=== PATIENT | female | born 1960 | race Caucasian/White ===

== ENCOUNTER 2017-11-25 14:30 | Inpatient (IN) | payer MEDICARE, MEDICAID, SELFPAY ==
[2017-11-26] MEDS ORDERED: ACETAMINOPHEN 500 MG TAB PO (01:30)
[2017-11-26] MEDS: methylPREDNISolone INJ 125 MG/2 ML VIAL (J2930) IV ×4 (01:50→18:17)
[2017-11-26] MEDS: AZITHROMYCIN INJ 500 MG, VIAL MATE ADAPTER 1 EACH in D5W 250 ML IV ×2 (01:50→23:44)
[2017-11-26] MEDS: cefTRIAXone SOD 1 GM in D5W MINI-BAG PLUS 50 ML IV (01:50)
[2017-11-26] MEDS: NICOTINE 21MG/24HR 1 EA TRANSDERMAL TD ×2 (01:51→21:10)
[2017-11-26] MEDS: IPRATROPIUM 0.5MG/ALBUTEROL 2.5MG INH SOL UD 3ML (DUONEB)(J7620) INH ×6 (03:26→23:41)
[2017-11-26 04:44] LABS: BASO % 0.3 % (0.0-1.0); HEMOGLOBIN 12.6 g/dl (12.0-15.5); IMMATURE GRANULOCYTE % 2.3 % (0-3.0); LYMPH % 10.7 % (24.0-44.0); MEAN CORPUSCULAR HEMOGLOBIN 29.9 pg (27.0-33.0); MEAN CORPUSCULAR HGB CONC 30.7 g/dl (32.0-36.5); MEAN CORPUSCULAR VOLUME 97.4 fl (80.0-96.0); MONO # 0.6 10^3/uL (0.0-0.8); MONO % 6.6 % (0.0-5.0); NEUTROPHILS # 7.1 10^3/uL (1.8-7.7); NEUTROPHILS % 80.1 % (36.0-66.0); PLATELET COUNT, AUTOMATED 229 10^3/uL (150-450); RED BLOOD COUNT 4.21 10^6/uL (4.00-5.40); RED CELL DISTRIBUTION WIDTH 13.6 % (11.5-14.5); WHITE BLOOD COUNT 8.9 10^3/uL (4.0-10.0)
[2017-11-26 04:51] LABS: AMMONIA 33 uMOL/L (<32)
[2017-11-26 04:54] LABS: ALBUMIN 2.6 GM/DL (3.2-5.2); ALBUMIN/GLOBULIN RATIO 0.72 (1.00-1.93); ALKALINE PHOSPHATASE 63 U/L (45-117); ALT/SGPT 36 U/L (12-78); ANION GAP 3 MEQ/L (8-16); AST/SGOT 9 U/L (7-37); BILIRUBIN,DIRECT 0.1 MG/DL (0.0-0.2); BILIRUBIN,TOTAL 0.2 MG/DL (0.2-1.0); BLOOD UREA NITROGEN 13 MG/DL (7-18); CALCIUM LEVEL 8.7 MG/DL (8.5-10.1); CARBON DIOXIDE LEVEL 32 MEQ/L (21-32); CHLORIDE LEVEL 106 MEQ/L (98-107); CHOLESTEROL LEVEL 136 MG/DL (< 200); CPK CREATINE PHOSPHOKINASE 19 U/L (26-192); CREATININE FOR GFR 0.76 MG/DL (0.55-1.30); GLOMERULAR FILTRATION RATE > 60.0 (>51); GLUCOSE, FASTING 173 MG/DL (70-100); LDH LACTATE DEHYDROGENASE 167 U/L (84-246); PHOSPHORUS LEVEL 2.4 MG/DL (2.5-4.9); SODIUM LEVEL 141 MEQ/L (136-145); TOTAL PROTEIN 6.2 GM/DL (6.4-8.2); TRIGLYCERIDES LEVEL 96 MG/DL (<150)
[2017-11-26 05:05] LABS: INR 1.13; PROTHROMBIN TIME 14.7 SECONDS (12.4-14.5)
[2017-11-26] MEDS: HEPARIN SOD (PORCINE) 5000 UNITS/ML VIAL SQ ×3 (05:43→21:11)
[2017-11-26] MEDS: GABAPENTIN 100 MG CAP PO ×3 (05:43→21:11)
[2017-11-26] MEDS: BUDESONIDE 0.5 MG/2 ML INHALATION SUSPENSION INH ×2 (07:49→20:02)
[2017-11-26] MEDS: FORMOTEROL FUMARATE 20 MCG/2 ML INHALATION SOLUTION (PERFOROMIST) INH ×2 (07:49→20:02)
[2017-11-26] MEDS: guaiFENesin ER 600 MG TAB PO ×2 (08:21→21:11)
[2017-11-26] MEDS: CETIRIZINE (ZyrTEC) 10 MG TAB PO (08:21)
[2017-11-26] MEDS: PARoxetine 20 MG TAB PO (08:22)
[2017-11-26] MEDS: PANTOPRAZOLE 40MG TAB (PROTONIX) PO (08:22)
[2017-11-26] MEDS: amLODIPine 10 MG TAB PO (08:24)
[2017-11-26] MEDS: BENAZEPRIL 5 MG TAB PO (10:40)
[2017-11-26] MEDS: hydroCHLOROthiazide 12.5 MG CAPSULE PO (10:40)
[2017-11-26] MEDS: ATORVASTATIN 20 MG TAB PO (21:11)
[2017-11-27] MEDS: methylPREDNISolone INJ 125 MG/2 ML VIAL (J2930) IV ×2 (01:08→06:01)
[2017-11-27] MEDS: cefTRIAXone SOD 1 GM in D5W MINI-BAG PLUS 50 ML IV (01:09)
[2017-11-27] MEDS: IPRATROPIUM 0.5MG/ALBUTEROL 2.5MG INH SOL UD 3ML (DUONEB)(J7620) INH ×5 (03:40→19:58)
[2017-11-27 05:13] LABS: BASO % 0.3 % (0.0-1.0); HEMATOCRIT 39.7 % (36.0-47.0); HEMOGLOBIN 12.6 g/dl (12.0-15.5); IMMATURE GRANULOCYTE % 3.6 % (0-3.0); LYMPH # 0.7 10^3/uL (1.5-4.5); LYMPH % 8.3 % (24.0-44.0); MEAN CORPUSCULAR HEMOGLOBIN 29.8 pg (27.0-33.0); MEAN CORPUSCULAR HGB CONC 31.7 g/dl (32.0-36.5); MEAN CORPUSCULAR VOLUME 93.9 fl (80.0-96.0); MONO # 0.6 10^3/uL (0.0-0.8); MONO % 6.7 % (0.0-5.0); NEUTROPHILS % 81.1 % (36.0-66.0); PLATELET COUNT, AUTOMATED 248 10^3/uL (150-450); RED BLOOD COUNT 4.23 10^6/uL (4.00-5.40); RED CELL DISTRIBUTION WIDTH 13.2 % (11.5-14.5); WHITE BLOOD COUNT 8.7 10^3/uL (4.0-10.0)
[2017-11-27 05:33] LABS: ALBUMIN 2.7 GM/DL (3.2-5.2); ALBUMIN/GLOBULIN RATIO 0.82 (1.00-1.93); ALKALINE PHOSPHATASE 55 U/L (45-117); ALT/SGPT 27 U/L (12-78); ANION GAP 4 MEQ/L (8-16); AST/SGOT 4 U/L (7-37); BILIRUBIN,TOTAL 0.2 MG/DL (0.2-1.0); BLOOD UREA NITROGEN 10 MG/DL (7-18); CALCIUM LEVEL 8.6 MG/DL (8.5-10.1); CARBON DIOXIDE LEVEL 37 MEQ/L (21-32); CHLORIDE LEVEL 99 MEQ/L (98-107); CREATININE FOR GFR 0.87 MG/DL (0.55-1.30); GLOMERULAR FILTRATION RATE > 60.0 (>51); GLUCOSE, FASTING 186 MG/DL (70-100); POTASSIUM SERUM 2.9 MEQ/L (3.5-5.1); SODIUM LEVEL 140 MEQ/L (136-145)
[2017-11-27 05:48] LABS: ABG BASE EXCESS 12.1 (-2.0-2.0); ABG HCO3 38.4 MEQ/L (22.0-26.0); ABG O2 SATURATION 92.7 % (95.0-99.0); ABG PARTIAL PRESSURE CO2 57.1 mmHg (35.0-45.0); ABG PARTIAL PRESSURE O2 64.4 mmHg (75.0-100.0); ABG STANDARD HCO3 35.7 MEQ/L (22.0-26.0); ABG TOTAL CO2 40.2 MEQ/L (22.0-29.0); ABG pH (ARTERIAL) 7.446 UNITS (7.350-7.450)
[2017-11-27] MEDS: HEPARIN SOD (PORCINE) 5000 UNITS/ML VIAL SQ ×3 (06:01→21:06)
[2017-11-27] MEDS: GABAPENTIN 100 MG CAP PO ×3 (06:01→21:03)
[2017-11-27] MEDS: KCL 10MEQ/100ML SWI (KRUN) 10 MEQ in APPROPRIATE DILUENT 1 EA IV ×3 (06:35→10:35)
[2017-11-27] MEDS: NORCO, ANEXSIA 5/325MG TABLET (HYDROcodone/ACETAMINOPHEN) PO ×2 (06:35→13:33)
[2017-11-27] MEDS: BUDESONIDE 0.5 MG/2 ML INHALATION SUSPENSION INH (07:32)
[2017-11-27] MEDS: FORMOTEROL FUMARATE 20 MCG/2 ML INHALATION SOLUTION (PERFOROMIST) INH (07:32)
[2017-11-27] MEDS: PARoxetine 20 MG TAB PO (08:41)
[2017-11-27] MEDS: BENAZEPRIL 5 MG TAB PO (08:42)
[2017-11-27] MEDS: guaiFENesin ER 600 MG TAB PO ×2 (08:43→21:03)
[2017-11-27] MEDS: amLODIPine 10 MG TAB PO (08:44)
[2017-11-27] MEDS: hydroCHLOROthiazide 12.5 MG CAPSULE PO (08:44)
[2017-11-27] MEDS: PANTOPRAZOLE 40MG TAB (PROTONIX) PO (08:45)
[2017-11-27] MEDS: CETIRIZINE (ZyrTEC) 10 MG TAB PO (08:46)
[2017-11-27] MEDS ORDERED: ALBUTEROL SULFATE 2.5 MG/0.5 ML INH NEB SOLN NEB (10:45)
[2017-11-27] MEDS: AZITHROMYCIN 250 MG TAB PO (11:41)
[2017-11-27] MEDS: SYMBICORT 160/4.5MCG INHALER 6GM INH ×2 (13:31→19:57)
[2017-11-27] MEDS: predniSONE 20 MG TAB PO (18:13)
[2017-11-27] MEDS: ATORVASTATIN 20 MG TAB PO (21:03)
[2017-11-27] MEDS: NICOTINE 21MG/24HR 1 EA TRANSDERMAL TD (21:06)
[2017-11-28] MEDS: cefTRIAXone SOD 1 GM in D5W MINI-BAG PLUS 50 ML IV (00:56)
[2017-11-28] MEDS: GABAPENTIN 100 MG CAP PO ×3 (05:31→22:01)
[2017-11-28] MEDS: HEPARIN SOD (PORCINE) 5000 UNITS/ML VIAL SQ ×3 (05:31→22:01)
[2017-11-28] MEDS: predniSONE 20 MG TAB PO (05:31)
[2017-11-28] MEDS: IPRATROPIUM 0.5MG/ALBUTEROL 2.5MG INH SOL UD 3ML (DUONEB)(J7620) INH ×4 (07:13→19:30)
[2017-11-28] MEDS: TIOTROPIUM INHALER/CAPSULE (SPIRIVA) INH (07:13)
[2017-11-28] MEDS: SYMBICORT 160/4.5MCG INHALER 6GM INH ×2 (07:14→19:29)
[2017-11-28] MEDS: PANTOPRAZOLE 40MG TAB (PROTONIX) PO (08:55)
[2017-11-28] MEDS: hydroCHLOROthiazide 12.5 MG CAPSULE PO (08:56)
[2017-11-28] MEDS: guaiFENesin ER 600 MG TAB PO ×2 (08:56→22:00)
[2017-11-28] MEDS: CETIRIZINE (ZyrTEC) 10 MG TAB PO (08:56)
[2017-11-28] MEDS: PARoxetine 20 MG TAB PO (08:57)
[2017-11-28] MEDS: amLODIPine 10 MG TAB PO (08:57)
[2017-11-28] MEDS: BENAZEPRIL 5 MG TAB PO (08:57)
[2017-11-28] MEDS: AZITHROMYCIN 250 MG TAB PO (08:57)
[2017-11-28 09:05] LABS: MAGNESIUM LEVEL 2.1 MG/DL (1.8-2.4)
[2017-11-28 09:59] LABS: BASO % 0.2 % (0.0-1.0); HEMATOCRIT 41.4 % (36.0-47.0); HEMOGLOBIN 13.4 g/dl (12.0-15.5); IMMATURE GRANULOCYTE % 3.5 % (0-3.0); LYMPH # 0.8 10^3/uL (1.5-4.5); LYMPH % 7.9 % (24.0-44.0); MEAN CORPUSCULAR HEMOGLOBIN 30.2 pg (27.0-33.0); MEAN CORPUSCULAR HGB CONC 32.4 g/dl (32.0-36.5); MEAN CORPUSCULAR VOLUME 93.5 fl (80.0-96.0); MONO # 0.9 10^3/uL (0.0-0.8); MONO % 8.9 % (0.0-5.0); NEUTROPHILS # 8.3 10^3/uL (1.8-7.7); NEUTROPHILS % 79.5 % (36.0-66.0); PLATELET COUNT, AUTOMATED 308 10^3/uL (150-450); RED BLOOD COUNT 4.43 10^6/uL (4.00-5.40); RED CELL DISTRIBUTION WIDTH 13.2 % (11.5-14.5); WHITE BLOOD COUNT 10.4 10^3/uL (4.0-10.0)
[2017-11-28 10:15] LABS: ANION GAP 7 MEQ/L (8-16); BLOOD UREA NITROGEN 10 MG/DL (7-18); CALCIUM LEVEL 8.6 MG/DL (8.5-10.1); CARBON DIOXIDE LEVEL 41 MEQ/L (21-32); CHLORIDE LEVEL 95 MEQ/L (98-107); CREATININE FOR GFR 0.85 MG/DL (0.55-1.30); GLOMERULAR FILTRATION RATE > 60.0 (>51); GLUCOSE, FASTING 158 MG/DL (70-100); POTASSIUM SERUM 3.2 MEQ/L (3.5-5.1); SODIUM LEVEL 143 MEQ/L (136-145)
[2017-11-28] MEDS: POTASSIUM CHLORIDE 10 MEQ SR TABLET PO (11:29)
[2017-11-28] MEDS: NORCO, ANEXSIA 5/325MG TABLET (HYDROcodone/ACETAMINOPHEN) PO (15:40)
[2017-11-28] MEDS: ATORVASTATIN 20 MG TAB PO (22:01)
[2017-11-28] MEDS: NICOTINE 21MG/24HR 1 EA TRANSDERMAL TD (22:01)
[2017-11-29] MEDS: cefTRIAXone SOD 1 GM in D5W MINI-BAG PLUS 50 ML IV (01:26)
[2017-11-29] MEDS: GABAPENTIN 100 MG CAP PO ×3 (05:37→21:05)
[2017-11-29] MEDS: HEPARIN SOD (PORCINE) 5000 UNITS/ML VIAL SQ ×3 (05:37→21:07)
[2017-11-29 06:24] LABS: HEMATOCRIT 39.9 % (36.0-47.0); HEMOGLOBIN 12.7 g/dl (12.0-15.5); MEAN CORPUSCULAR HEMOGLOBIN 30.1 pg (27.0-33.0); MEAN CORPUSCULAR HGB CONC 31.8 g/dl (32.0-36.5); MEAN CORPUSCULAR VOLUME 94.5 fl (80.0-96.0); PLATELET COUNT, AUTOMATED 253 10^3/uL (150-450); RED BLOOD COUNT 4.22 10^6/uL (4.00-5.40); RED CELL DISTRIBUTION WIDTH 13.4 % (11.5-14.5); WHITE BLOOD COUNT 8.9 10^3/uL (4.0-10.0)
[2017-11-29 07:12] LABS: BLOOD UREA NITROGEN 10 MG/DL (7-18); CREATININE FOR GFR 0.81 MG/DL (0.55-1.30); GLOMERULAR FILTRATION RATE > 60.0 (>51); GLUCOSE, FASTING 108 MG/DL (70-100); SODIUM LEVEL 144 MEQ/L (136-145)
[2017-11-29 07:13] LABS: CHLORIDE LEVEL 96 MEQ/L (98-107)
[2017-11-29 07:14] LABS: ANION GAP 4 MEQ/L (8-16); CALCIUM LEVEL 8.3 MG/DL (8.5-10.1); CARBON DIOXIDE LEVEL 44 MEQ/L (21-32)
[2017-11-29] MEDS: IPRATROPIUM 0.5MG/ALBUTEROL 2.5MG INH SOL UD 3ML (DUONEB)(J7620) INH ×3 (07:14→15:23)
[2017-11-29] MEDS: SYMBICORT 160/4.5MCG INHALER 6GM INH ×2 (07:14→19:46)
[2017-11-29] MEDS: TIOTROPIUM INHALER/CAPSULE (SPIRIVA) INH (07:14)
[2017-11-29 07:16] LABS: POTASSIUM SERUM 2.7 MEQ/L (3.5-5.1)
[2017-11-29] MEDS: guaiFENesin ER 600 MG TAB PO ×2 (08:09→21:05)
[2017-11-29] MEDS: CETIRIZINE (ZyrTEC) 10 MG TAB PO (08:09)
[2017-11-29] MEDS: PANTOPRAZOLE 40MG TAB (PROTONIX) PO (08:09)
[2017-11-29] MEDS: hydroCHLOROthiazide 12.5 MG CAPSULE PO (08:10)
[2017-11-29] MEDS: BENAZEPRIL 5 MG TAB PO (08:11)
[2017-11-29] MEDS: POTASSIUM CHLORIDE 10 MEQ SR TABLET PO (08:12)
[2017-11-29] MEDS: amLODIPine 10 MG TAB PO (08:12)
[2017-11-29] MEDS: predniSONE 20 MG TAB PO (08:12)
[2017-11-29] MEDS: PARoxetine 20 MG TAB PO (08:12)
[2017-11-29] MEDS: AZITHROMYCIN 250 MG TAB PO (08:12)
[2017-11-29] MEDS: ATORVASTATIN 20 MG TAB PO (21:05)
[2017-11-29] MEDS: NICOTINE 21MG/24HR 1 EA TRANSDERMAL TD (21:06)
[2017-11-29] MEDS: NORCO, ANEXSIA 5/325MG TABLET (HYDROcodone/ACETAMINOPHEN) PO (21:09)
[2017-11-30] MEDS: cefTRIAXone SOD 1 GM in D5W MINI-BAG PLUS 50 ML IV (00:42)
[2017-11-30] MEDS: GABAPENTIN 100 MG CAP PO (05:10)
[2017-11-30] MEDS: HEPARIN SOD (PORCINE) 5000 UNITS/ML VIAL SQ (05:11)
[2017-11-30 06:12] LABS: HEMATOCRIT 40.4 % (36.0-47.0); HEMOGLOBIN 12.9 g/dl (12.0-15.5); MEAN CORPUSCULAR HEMOGLOBIN 30.3 pg (27.0-33.0); MEAN CORPUSCULAR HGB CONC 31.9 g/dl (32.0-36.5); MEAN CORPUSCULAR VOLUME 94.8 fl (80.0-96.0); PLATELET COUNT, AUTOMATED 253 10^3/uL (150-450); RED BLOOD COUNT 4.26 10^6/uL (4.00-5.40); RED CELL DISTRIBUTION WIDTH 13.6 % (11.5-14.5); WHITE BLOOD COUNT 9.6 10^3/uL (4.0-10.0)
[2017-11-30 06:30] LABS: ANION GAP 3 MEQ/L (8-16); BLOOD UREA NITROGEN 12 MG/DL (7-18); CALCIUM LEVEL 8.8 MG/DL (8.5-10.1); CARBON DIOXIDE LEVEL 44 MEQ/L (21-32); CHLORIDE LEVEL 95 MEQ/L (98-107); CREATININE FOR GFR 0.83 MG/DL (0.55-1.30); GLOMERULAR FILTRATION RATE > 60.0 (>51); GLUCOSE, FASTING 112 MG/DL (70-100); POTASSIUM SERUM 3.2 MEQ/L (3.5-5.1); SODIUM LEVEL 142 MEQ/L (136-145)
[2017-11-30] MEDS: IPRATROPIUM 0.5MG/ALBUTEROL 2.5MG INH SOL UD 3ML (DUONEB)(J7620) INH (08:00)
[2017-11-30] MEDS: POTASSIUM CHLORIDE 10 MEQ SR TABLET PO (08:25)
[2017-11-30] MEDS: predniSONE 20 MG TAB PO (08:26)
[2017-11-30] MEDS: BENAZEPRIL 5 MG TAB PO (08:26)
[2017-11-30] MEDS: guaiFENesin ER 600 MG TAB PO (08:26)
[2017-11-30] MEDS: AZITHROMYCIN 250 MG TAB PO (08:26)
[2017-11-30] MEDS: PARoxetine 20 MG TAB PO (08:26)
[2017-11-30] MEDS: PANTOPRAZOLE 40MG TAB (PROTONIX) PO (08:27)
[2017-11-30] MEDS: amLODIPine 10 MG TAB PO (08:27)
[2017-11-30] MEDS: hydroCHLOROthiazide 12.5 MG CAPSULE PO (08:27)
[2017-11-30] MEDS: CETIRIZINE (ZyrTEC) 10 MG TAB PO (08:27)
[2017-11-30] MEDS: SYMBICORT 160/4.5MCG INHALER 6GM INH (08:56)
[2017-11-30] MEDS: TIOTROPIUM INHALER/CAPSULE (SPIRIVA) INH (08:56)
== END 2017-11-30 12:45 | disposition home or self-care (01) | DRG 189 ==
LOC: M MSPAV 11-27 12:05 → M ICU 14:30
PROC: 5A09357 Assistance with Respiratory Ventilation, Less than 24 Consecutive Hours, Continuous Positive Airway Pressure (ICD-10-PCS; principal; 2017-11-25)
DX: J96.21 Acute and chronic respiratory failure with hypoxia (principal); J44.0 Chronic obstructive pulmonary disease with (acute) lower respiratory infection; E87.2 Acidosis; J44.1 Chronic obstructive pulmonary disease with (acute) exacerbation; J96.02 Acute respiratory failure with hypercapnia; F17.210 Nicotine dependence, cigarettes, uncomplicated; I10 Essential (primary) hypertension; E66.9 Obesity, unspecified; F32.9 Major depressive disorder, single episode, unspecified; E78.00 Pure hypercholesterolemia, unspecified; J30.2 Other seasonal allergic rhinitis; R91.8 Other nonspecific abnormal finding of lung field; E87.6 Hypokalemia; E55.9 Vitamin D deficiency, unspecified; M19.90 Unspecified osteoarthritis, unspecified site; M25.561 Pain in right knee; M10.9 Gout, unspecified; Z79.891 Long term (current) use of opiate analgesic; Z79.899 Other long term (current) drug therapy

== ENCOUNTER 2022-04-04 17:15 | Inpatient (IN) | payer MEDICARE, MEDICAID ==
[~2022-04-04] VITALS: Ht 152.4 cm; Wt 70.8 kg
[~2022-04-04 17:15] MED LIST: ALLO100T PO; AMLO1TAB24 PO; AMLO1TAB25 PO; AZIT500I IV; BENA1TAB23 PO; CEFT1INJ5 INJ; CETI10TA PO; COMBAER6 INH; DILT30TA PO; GABA-1171 PO; HYDR12CA PO; IPRA0.00 INH; METH125VL IM; METO100T5 PO; NICO21DI34 TD; NORC1TAB8 PO; OMEP40CA4 PO; PARO20TA3 PO; POTA-136 PO; PRED10TA2 PO; QUET1TAB17 PO; RISP-8 PO; SIMV20TA22 PO; SYMB16INH INH; VITA100066 PO; VITA50005 PO
[2022-04-05] VITALS (21 sets, daily range): BP systolic 116–198; BP diastolic 56–92; O2SAT 90
[2022-04-05] MEDS ORDERED: MOM 30ML SUSPENSION UDC PO PRN
[2022-04-05 00:32] LABS: ABG BASE EXCESS 2.1 (-2.0-2.0); ABG HCO3 30.5 MEQ/L (22.0-26.0); ABG O2 SATURATION 94.3 % (95.0-99.0); ABG PARTIAL PRESSURE O2 75.8 mmHg (75.0-100.0); ABG STANDARD HCO3 26.3 MEQ/L (22.0-26.0); ABG TOTAL CO2 32.5 MEQ/L (22.0-29.0); ABG pH (ARTERIAL) 7.289 UNITS (7.350-7.450)
[2022-04-05 00:34] LABS: ABG PARTIAL PRESSURE CO2 65.1 mmHg (35.0-45.0)
[2022-04-05 00:59] LABS: HEMATOCRIT 42.2 % (36.0-47.0); HEMOGLOBIN 12.5 g/dl (12.0-15.5); MEAN CORPUSCULAR HEMOGLOBIN 29.1 pg (27.0-33.0); MEAN CORPUSCULAR HGB CONC 29.6 g/dl (32.0-36.5); MEAN CORPUSCULAR VOLUME 98.4 fl (80.0-96.0); PLATELET COUNT, AUTOMATED 293 10^3/uL (150-450); RED BLOOD COUNT 4.29 10^6/uL (4.00-5.40); WHITE BLOOD COUNT 13.8 10^3/uL (4.0-10.0)
[2022-04-05 01:40] LABS: ALBUMIN 3.1 GM/DL (3.2-5.2); ALT/SGPT 16 U/L (12-78); BILIRUBIN,TOTAL 0.2 MG/DL (0.2-1.0); BLOOD UREA NITROGEN 11 MG/DL (7-18); CARBON DIOXIDE LEVEL 33 MEQ/L (21-32); CHLORIDE LEVEL 101 MEQ/L (98-107); CREATININE FOR GFR 0.81 MG/DL (0.55-1.30); GLOMERULAR FILTRATION RATE > 60.0 (>51); GLUCOSE, FASTING 139 MG/DL (70-100); POTASSIUM SERUM 4.5 MEQ/L (3.5-5.1); SODIUM LEVEL 137 MEQ/L (136-145); TOTAL PROTEIN 6.5 GM/DL (6.4-8.2)
[2022-04-05] MEDS ORDERED: methylPREDNISolone 125MG 2ML VIAL IV SCH (04:00)
[2022-04-05] MEDS: cefTRIAXone SOD 1 GM in D5W MINI-BAG PLUS 50 ML IV SCH (04:27)
[2022-04-05] MEDS: DOXYCYCLINE HYCLATE 100MG TABLET PO SCH ×2 (05:48→20:15)
[2022-04-05] MEDS ORDERED: HEPARIN SOD (PORCINE) 5000UNITS/ML 1ML VIAL/SYRINGE SC SCH (06:00)
[2022-04-05] MEDS: SYMBICORT 160/4.5MCG INHALER 6GM INH SCH ×3 (08:00→20:04)
[2022-04-05] MEDS: IPRATROPIUM 0.5MG/ALBUTEROL 2.5MG INH SOL UD 3ML (DUONEB) NEB SCH ×3 (08:06→20:04)
[2022-04-05 08:19] LABS: ABG BASE EXCESS 5.2 (-2.0-2.0); ABG HCO3 34.3 MEQ/L (22.0-26.0); ABG O2 SATURATION 95.7 % (95.0-99.0); ABG PARTIAL PRESSURE O2 83.8 mmHg (75.0-100.0); ABG STANDARD HCO3 29.1 MEQ/L (22.0-26.0); ABG TOTAL CO2 36.6 MEQ/L (22.0-29.0); ABG pH (ARTERIAL) 7.285 UNITS (7.350-7.450)
[2022-04-05 08:23] LABS: ABG PARTIAL PRESSURE CO2 73.8 mmHg (35.0-45.0)
[2022-04-05] MEDS ORDERED: amLODIPine 5 MG TAB PO SCH (09:00)
[2022-04-05] MEDS ORDERED: hydrALAZINE 20MG/ML 1ML VIAL (J0360 PER 20MG) IV ONE (09:10)
[2022-04-05] MEDS: PANTOPRAZOLE 40MG VIAL IV SCH (09:15)
[2022-04-05] MEDS: DOCUSATE SODIUM 100MG CAPSULE PO SCH ×2 (09:15→20:15)
[2022-04-05] MEDS: ENOXAPARIN 40MG/0.4ML SYRINGE (J1650 PER 10MG) SC SCH (09:15)
[2022-04-05] MEDS: methylPREDNISolone 125MG 2ML VIAL IV SCH ×2 (09:16→17:35)
[2022-04-05] MEDS: NICOTINE 21MG/24HR 1 EA TRANSDERMAL TD SCH (09:16)
[2022-04-05] MEDS ORDERED: FOLI1TAB11 PO (09:25)
[2022-04-05] MEDS ORDERED: AMLO1TAB24 PO (09:25)
[2022-04-05] MEDS ORDERED: PRED10TA2 PO (09:25)
[2022-04-05] MEDS ORDERED: TREL1AER INH (09:25)
[2022-04-05] MEDS ORDERED: METH2.5T48 PO (09:28)
[2022-04-05] MEDS ORDERED: CHOL25TA2 PO (09:33)
[2022-04-05] MEDS ORDERED: MELA5TAB10 PO (09:34)
[2022-04-05] MEDS ORDERED: AZIT-12 PO (10:09)
[2022-04-05] MEDS ORDERED: CEFT1INJ5 IV (10:09)
[2022-04-05] MEDS ORDERED: METH125VL IV (10:09)
[2022-04-05] MEDS ORDERED: HOME MED LIST COMPLETE! XX SCH (10:10)
[2022-04-05 14:58] LABS: ABG BASE EXCESS 4.3 (-2.0-2.0); ABG HCO3 32.4 MEQ/L (22.0-26.0); ABG O2 SATURATION 94.2 % (95.0-99.0); ABG PARTIAL PRESSURE CO2 65.3 mmHg (35.0-45.0); ABG PARTIAL PRESSURE O2 74.1 mmHg (75.0-100.0); ABG STANDARD HCO3 28.3 MEQ/L (22.0-26.0); ABG TOTAL CO2 34.4 MEQ/L (22.0-29.0); ABG pH (ARTERIAL) 7.314 UNITS (7.350-7.450)
[2022-04-05] MEDS: ENALAPRIL MALEATE 5 MG TAB PO SCH (17:35)
[2022-04-05] MEDS ORDERED: RAMELTEON 8 MG TAB (ROZEREM) PO ONE (21:00)
[2022-04-06] VITALS (11 sets, daily range): BP systolic 124–152; BP diastolic 60–78
[2022-04-06] MEDS: methylPREDNISolone 125MG 2ML VIAL IV SCH ×3 (01:03→16:35)
[2022-04-06] MEDS: IPRATROPIUM 0.5MG/ALBUTEROL 2.5MG INH SOL UD 3ML (DUONEB) NEB SCH ×4 (02:55→20:22)
[2022-04-06] MEDS: cefTRIAXone SOD 1 GM in D5W MINI-BAG PLUS 50 ML IV SCH (03:11)
[2022-04-06 04:18] LABS: HEMATOCRIT 42.8 % (36.0-47.0); HEMOGLOBIN 12.4 g/dl (12.0-15.5); MEAN CORPUSCULAR HEMOGLOBIN 28.9 pg (27.0-33.0); MEAN CORPUSCULAR VOLUME 99.8 fl (80.0-96.0); PLATELET COUNT, AUTOMATED 264 10^3/uL (150-450); RED BLOOD COUNT 4.29 10^6/uL (4.00-5.40); WHITE BLOOD COUNT 14.2 10^3/uL (4.0-10.0)
[2022-04-06 04:58] LABS: ALBUMIN 2.7 GM/DL (3.2-5.2); ALT/SGPT 17 U/L (12-78); BILIRUBIN,TOTAL 0.1 MG/DL (0.2-1.0); BLOOD UREA NITROGEN 16 MG/DL (7-18); CARBON DIOXIDE LEVEL 33 MEQ/L (21-32); CHLORIDE LEVEL 101 MEQ/L (98-107); CREATININE FOR GFR 0.71 MG/DL (0.55-1.30); GLOMERULAR FILTRATION RATE > 60.0 (>51); GLUCOSE, FASTING 180 MG/DL (70-100); POTASSIUM SERUM 4.5 MEQ/L (3.5-5.1); SODIUM LEVEL 137 MEQ/L (136-145); TOTAL PROTEIN 6.3 GM/DL (6.4-8.2)
[2022-04-06] MEDS: SYMBICORT 160/4.5MCG INHALER 6GM INH SCH ×2 (07:52→20:22)
[2022-04-06] MEDS: DOXYCYCLINE HYCLATE 100MG TABLET PO SCH ×2 (09:21→20:07)
[2022-04-06] MEDS: DOCUSATE SODIUM 100MG CAPSULE PO SCH ×2 (09:21→20:07)
[2022-04-06] MEDS: PANTOPRAZOLE 40MG VIAL IV SCH (09:22)
[2022-04-06] MEDS: ENALAPRIL MALEATE 5 MG TAB PO SCH (09:22)
[2022-04-06] MEDS: NICOTINE 21MG/24HR 1 EA TRANSDERMAL TD SCH (09:23)
[2022-04-06] MEDS: ENOXAPARIN 40MG/0.4ML SYRINGE (J1650 PER 10MG) SC SCH (09:23)
[2022-04-06 10:17] LABS: NT-PRO BNP 516 PG/ML (<125)
[2022-04-06 11:33] LABS: HEMOGLOBIN A1c 5.3 %
[2022-04-06] MEDS: FOLIC ACID 1MG TAB PO SCH (12:58)
[2022-04-06] MEDS: PARoxetine 20MG TABLET PO SCH (12:59)
[2022-04-06] MEDS: MULTIVITAMINS/MINERALS THERAP 1 TAB PO SCH (16:35)
[2022-04-06] MEDS: THIAMINE 100 MG TAB PO SCH (16:35)
[2022-04-06] MEDS: LORazepam 2 MG TAB PO PRN ×2 (16:35→18:52)
[2022-04-06] MEDS: QUEtiapine FUMARATE 25 MG TAB PO SCH (20:08)
[2022-04-07] VITALS (17 sets, daily range): BP systolic 89–165; BP diastolic 57–84; O2SAT 93
[2022-04-07] MEDS: methylPREDNISolone 125MG 2ML VIAL IV SCH ×3 (00:15→18:17)
[2022-04-07 00:23] LABS: ABG BASE EXCESS 5.6 (-2.0-2.0); ABG HCO3 34.9 MEQ/L (22.0-26.0); ABG O2 SATURATION 85.9 % (95.0-99.0); ABG PARTIAL PRESSURE O2 52.8 mmHg (75.0-100.0); ABG STANDARD HCO3 29.2 MEQ/L (22.0-26.0); ABG TOTAL CO2 37.2 MEQ/L (22.0-29.0); ABG pH (ARTERIAL) 7.278 UNITS (7.350-7.450)
[2022-04-07 00:25] LABS: ABG PARTIAL PRESSURE CO2 76.3 mmHg (35.0-45.0)
[2022-04-07] MEDS: IPRATROPIUM 0.5MG/ALBUTEROL 2.5MG INH SOL UD 3ML (DUONEB) NEB SCH ×4 (02:10→23:46)
[2022-04-07] MEDS: cefTRIAXone SOD 1 GM in D5W MINI-BAG PLUS 50 ML IV SCH (03:14)
[2022-04-07 05:58] LABS: ABG BASE EXCESS 3.4 (-2.0-2.0); ABG HCO3 32.3 MEQ/L (22.0-26.0); ABG O2 SATURATION 99.3 % (95.0-99.0); ABG PARTIAL PRESSURE O2 167.2 mmHg (75.0-100.0); ABG STANDARD HCO3 27.6 MEQ/L (22.0-26.0); ABG TOTAL CO2 34.4 MEQ/L (22.0-29.0); ABG pH (ARTERIAL) 7.282 UNITS (7.350-7.450)
[2022-04-07 05:59] LABS: ABG PARTIAL PRESSURE CO2 69.9 mmHg (35.0-45.0)
[2022-04-07] MEDS: SYMBICORT 160/4.5MCG INHALER 6GM INH SCH (06:59)
[2022-04-07] MEDS: LORazepam 2 MG TAB PO PRN (07:25)
[2022-04-07 07:37] LABS: HEMATOCRIT 42.8 % (36.0-47.0); HEMOGLOBIN 12.3 g/dl (12.0-15.5); MEAN CORPUSCULAR HGB CONC 28.7 g/dl (32.0-36.5); MEAN CORPUSCULAR VOLUME 100.9 fl (80.0-96.0); PLATELET COUNT, AUTOMATED 342 10^3/uL (150-450); RED BLOOD COUNT 4.24 10^6/uL (4.00-5.40); WHITE BLOOD COUNT 16.8 10^3/uL (4.0-10.0)
[2022-04-07] MEDS: BUDESONIDE 0.5 MG/2 ML INHALATION SUSPENSION INH SCH ×2 (08:00→19:23)
[2022-04-07 08:13] LABS: ALBUMIN 2.9 GM/DL (3.2-5.2); ALT/SGPT 15 U/L (12-78); BILIRUBIN,TOTAL 0.2 MG/DL (0.2-1.0); BLOOD UREA NITROGEN 28 MG/DL (7-18); CALCIUM LEVEL 10.5 MG/DL (8.5-10.1); CARBON DIOXIDE LEVEL 37 MEQ/L (21-32); CHLORIDE LEVEL 101 MEQ/L (98-107); GLOMERULAR FILTRATION RATE > 60.0 (>51); GLUCOSE, FASTING 144 MG/DL (70-100); POTASSIUM SERUM 4.8 MEQ/L (3.5-5.1); SODIUM LEVEL 138 MEQ/L (136-145); TOTAL PROTEIN 6.1 GM/DL (6.4-8.2)
[2022-04-07] MEDS ORDERED: FUROSEMIDE 20 MG TAB PO ONE (09:20)
[2022-04-07] MEDS: ENOXAPARIN 40MG/0.4ML SYRINGE (J1650 PER 10MG) SC SCH (09:41)
[2022-04-07] MEDS: FOLIC ACID 1MG TAB PO SCH (09:42)
[2022-04-07] MEDS: DOCUSATE SODIUM 100MG CAPSULE PO SCH ×2 (09:42→20:47)
[2022-04-07] MEDS: OMEPRAZOLE 20MG CAP PO SCH (09:42)
[2022-04-07] MEDS: PARoxetine 20MG TABLET PO SCH (09:42)
[2022-04-07] MEDS: MULTIVITAMINS/MINERALS THERAP 1 TAB PO SCH (09:43)
[2022-04-07] MEDS: ENALAPRIL MALEATE 5 MG TAB PO SCH (09:43)
[2022-04-07] MEDS: THIAMINE 100 MG TAB PO SCH ×2 (09:43→20:48)
[2022-04-07] MEDS: OXAZEPAM 10MG CAP PO SCH ×2 (09:43→20:47)
[2022-04-07] MEDS: DOXYCYCLINE HYCLATE 100MG TABLET PO SCH (09:44)
[2022-04-07] MEDS: NICOTINE 21MG/24HR 1 EA TRANSDERMAL TD SCH (09:44)
[2022-04-07] MEDS ORDERED: LORazepam 2 MG/ML VIAL IV STA (09:50)
[2022-04-07 14:24] LABS: ABG BASE EXCESS 2.2 (-2.0-2.0); ABG HCO3 30.5 MEQ/L (22.0-26.0); ABG O2 SATURATION 97.1 % (95.0-99.0); ABG STANDARD HCO3 26.4 MEQ/L (22.0-26.0); ABG TOTAL CO2 32.5 MEQ/L (22.0-29.0); ABG pH (ARTERIAL) 7.288 UNITS (7.350-7.450)
[2022-04-07 14:29] LABS: ABG PARTIAL PRESSURE CO2 65.1 mmHg (35.0-45.0)
[2022-04-07] MEDS: FORMOTEROL FUMARATE 20 MCG/2 ML INHALATION SOLUTION (PERFOROMIST) INH SCH (19:23)
[2022-04-07] MEDS ORDERED: LORazepam 2 MG/ML VIAL IV PRN (20:10)
[2022-04-07] MEDS ORDERED: DOXYCYCLINE HYCLATE 100 MG in D5W MINI-BAG PLUS 100 ML IV ONE (20:35)
[2022-04-07] MEDS: QUEtiapine FUMARATE 25 MG TAB PO SCH (20:48)
[2022-04-08] VITALS (13 sets, daily range): BP systolic 112–169; BP diastolic 56–88
[2022-04-08] MEDS: cefTRIAXone SOD 1 GM in D5W MINI-BAG PLUS 50 ML IV SCH (03:17)
[2022-04-08 04:31] LABS: HEMATOCRIT 44.7 % (36.0-47.0); HEMOGLOBIN 12.8 g/dl (12.0-15.5); MEAN CORPUSCULAR HEMOGLOBIN 29.4 pg (27.0-33.0); MEAN CORPUSCULAR HGB CONC 28.6 g/dl (32.0-36.5); MEAN CORPUSCULAR VOLUME 102.5 fl (80.0-96.0); PLATELET COUNT, AUTOMATED 293 10^3/uL (150-450); RED BLOOD COUNT 4.36 10^6/uL (4.00-5.40); WHITE BLOOD COUNT 11.2 10^3/uL (4.0-10.0)
[2022-04-08 05:08] LABS: ALT/SGPT 17 U/L (12-78); BILIRUBIN,TOTAL 0.2 MG/DL (0.2-1.0); BLOOD UREA NITROGEN 26 MG/DL (7-18); CALCIUM LEVEL 10.4 MG/DL (8.5-10.1); CARBON DIOXIDE LEVEL 40 MEQ/L (21-32); CHLORIDE LEVEL 100 MEQ/L (98-107); GLOMERULAR FILTRATION RATE > 60.0 (>51); GLUCOSE, FASTING 136 MG/DL (70-100); POTASSIUM SERUM 4.9 MEQ/L (3.5-5.1); SODIUM LEVEL 138 MEQ/L (136-145); TOTAL PROTEIN 6.3 GM/DL (6.4-8.2)
[2022-04-08 05:56] LABS: ABG BASE EXCESS 11.2 (-2.0-2.0); ABG HCO3 40.3 MEQ/L (22.0-26.0); ABG O2 SATURATION 97.4 % (95.0-99.0); ABG PARTIAL PRESSURE O2 98.1 mmHg (75.0-100.0); ABG TOTAL CO2 42.7 MEQ/L (22.0-29.0); ABG pH (ARTERIAL) 7.336 UNITS (7.350-7.450)
[2022-04-08 06:01] LABS: ABG PARTIAL PRESSURE CO2 77.2 mmHg (35.0-45.0)
[2022-04-08] MEDS: FORMOTEROL FUMARATE 20 MCG/2 ML INHALATION SOLUTION (PERFOROMIST) INH SCH ×2 (07:47→19:13)
[2022-04-08] MEDS: BUDESONIDE 0.5 MG/2 ML INHALATION SUSPENSION INH SCH ×2 (07:47→19:13)
[2022-04-08] MEDS: IPRATROPIUM 0.5MG/ALBUTEROL 2.5MG INH SOL UD 3ML (DUONEB) NEB SCH ×3 (07:47→23:48)
[2022-04-08] MEDS: PARoxetine 20MG TABLET PO SCH (08:28)
[2022-04-08] MEDS: NICOTINE 21MG/24HR 1 EA TRANSDERMAL TD SCH (08:28)
[2022-04-08] MEDS: ENOXAPARIN 40MG/0.4ML SYRINGE (J1650 PER 10MG) SC SCH (08:28)
[2022-04-08] MEDS: DOCUSATE SODIUM 100MG CAPSULE PO SCH ×2 (08:29→21:45)
[2022-04-08] MEDS: FOLIC ACID 1MG TAB PO SCH (08:29)
[2022-04-08] MEDS: OMEPRAZOLE 20MG CAP PO SCH (08:29)
[2022-04-08] MEDS: MULTIVITAMINS/MINERALS THERAP 1 TAB PO SCH (08:29)
[2022-04-08] MEDS: ENALAPRIL MALEATE 5 MG TAB PO SCH (08:29)
[2022-04-08] MEDS: THIAMINE 100 MG TAB PO SCH ×2 (08:30→21:45)
[2022-04-08] MEDS: methylPREDNISolone 125MG 2ML VIAL IV SCH ×3 (08:30→17:10)
[2022-04-08] MEDS: OXAZEPAM 10MG CAP PO SCH ×2 (08:30→21:45)
[2022-04-08] MEDS: DOXYCYCLINE HYCLATE 100MG TABLET PO SCH ×2 (12:01→23:11)
[2022-04-08 17:09] LABS: BODY FLUID CULTURE Not indicated. (.); ORGANISM ID Not indicated. (.); SPECIMEN SOURCE Urine (.); URINE STREP PNEUMONIAE ANTIGEN Negative (Negative)
[2022-04-08] MEDS: QUEtiapine FUMARATE 25 MG TAB PO SCH (21:45)
[2022-04-09] VITALS (8 sets, daily range): BP systolic 128–165; BP diastolic 58–74; O2SAT 93–96
[2022-04-09] MEDS: methylPREDNISolone 125MG 2ML VIAL IV SCH ×3 (00:29→17:15)
[2022-04-09] MEDS: cefTRIAXone SOD 1 GM in D5W MINI-BAG PLUS 50 ML IV SCH (04:28)
[2022-04-09] MEDS: IPRATROPIUM 0.5MG/ALBUTEROL 2.5MG INH SOL UD 3ML (DUONEB) NEB SCH ×3 (07:17→23:26)
[2022-04-09] MEDS: BUDESONIDE 0.5 MG/2 ML INHALATION SUSPENSION INH SCH ×2 (07:17→20:09)
[2022-04-09] MEDS: FORMOTEROL FUMARATE 20 MCG/2 ML INHALATION SOLUTION (PERFOROMIST) INH SCH ×2 (07:17→20:09)
[2022-04-09] MEDS: NICOTINE 21MG/24HR 1 EA TRANSDERMAL TD SCH (09:48)
[2022-04-09] MEDS: ENOXAPARIN 40MG/0.4ML SYRINGE (J1650 PER 10MG) SC SCH (09:48)
[2022-04-09] MEDS: DOCUSATE SODIUM 100MG CAPSULE PO SCH ×2 (09:49→20:47)
[2022-04-09] MEDS: OXAZEPAM 10MG CAP PO SCH ×2 (09:49→20:46)
[2022-04-09] MEDS: FOLIC ACID 1MG TAB PO SCH (09:50)
[2022-04-09] MEDS: ENALAPRIL MALEATE 5 MG TAB PO SCH (09:50)
[2022-04-09] MEDS: OMEPRAZOLE 20MG CAP PO SCH (09:50)
[2022-04-09] MEDS: THIAMINE 100 MG TAB PO SCH (09:50)
[2022-04-09] MEDS: DOXYCYCLINE HYCLATE 100MG TABLET PO SCH ×2 (09:51→20:46)
[2022-04-09] MEDS: MULTIVITAMINS/MINERALS THERAP 1 TAB PO SCH (09:51)
[2022-04-09] MEDS: PARoxetine 20MG TABLET PO SCH (09:51)
[2022-04-09] MEDS: QUEtiapine FUMARATE 25 MG TAB PO SCH (20:46)
[2022-04-10] VITALS (11 sets, daily range): BP systolic 128–165; BP diastolic 59–82; O2SAT 92–95
[2022-04-10] MEDS: methylPREDNISolone 125MG 2ML VIAL IV SCH (00:26)
[2022-04-10] MEDS: cefTRIAXone SOD 1 GM in D5W MINI-BAG PLUS 50 ML IV SCH (03:37)
[2022-04-10] MEDS: IPRATROPIUM 0.5MG/ALBUTEROL 2.5MG INH SOL UD 3ML (DUONEB) NEB SCH ×3 (07:54→23:53)
[2022-04-10] MEDS: BUDESONIDE 0.5 MG/2 ML INHALATION SUSPENSION INH SCH ×2 (07:54→19:02)
[2022-04-10] MEDS: FORMOTEROL FUMARATE 20 MCG/2 ML INHALATION SOLUTION (PERFOROMIST) INH SCH ×2 (07:54→19:02)
[2022-04-10] MEDS: NICOTINE 21MG/24HR 1 EA TRANSDERMAL TD SCH (08:48)
[2022-04-10] MEDS: PARoxetine 20MG TABLET PO SCH (08:49)
[2022-04-10] MEDS: ENOXAPARIN 40MG/0.4ML SYRINGE (J1650 PER 10MG) SC SCH (08:49)
[2022-04-10] MEDS: DOCUSATE SODIUM 100MG CAPSULE PO SCH ×2 (08:49→21:00)
[2022-04-10] MEDS: DOXYCYCLINE HYCLATE 100MG TABLET PO SCH ×2 (08:50→21:08)
[2022-04-10] MEDS: FOLIC ACID 1MG TAB PO SCH (08:50)
[2022-04-10] MEDS: OMEPRAZOLE 20MG CAP PO SCH (08:50)
[2022-04-10] MEDS: ENALAPRIL MALEATE 5 MG TAB PO SCH (08:50)
[2022-04-10] MEDS: MULTIVITAMINS/MINERALS THERAP 1 TAB PO SCH (08:50)
[2022-04-10] MEDS: OXAZEPAM 10MG CAP PO SCH ×2 (08:50→21:08)
[2022-04-10] MEDS: QUEtiapine FUMARATE 25 MG TAB PO SCH (21:08)
[2022-04-11] MEDS ORDERED: LevoFLOXacin 750 MG TABLET PO SCH (06:00)
[2022-04-11 06:38] VITALS: BP 128/66
[2022-04-11] MEDS ORDERED: ALBU6.7H6 INH (07:44)
[2022-04-11] MEDS ORDERED: PRED10TA2 PO (07:44)
[2022-04-11] MEDS ORDERED: DOXY-350 PO (07:44)
[2022-04-11] MEDS: IPRATROPIUM 0.5MG/ALBUTEROL 2.5MG INH SOL UD 3ML (DUONEB) NEB SCH (07:46)
[2022-04-11] MEDS: BUDESONIDE 0.5 MG/2 ML INHALATION SUSPENSION INH SCH (07:46)
[2022-04-11] MEDS ORDERED: CEFD300CAP PO (07:52)
[2022-04-11 08:12] LABS: BASO % 0.1 % (0.0-1.0); EOS # 0.2 10^3/uL (0.0-0.5); EOS % 1.6 % (0.0-3.0); HEMATOCRIT 46.7 % (36.0-47.0); HEMOGLOBIN 13.5 g/dl (12.0-15.5); LYMPH # 4.6 10^3/uL (1.5-5.0); MEAN CORPUSCULAR HEMOGLOBIN 28.9 pg (27.0-33.0); MEAN CORPUSCULAR HGB CONC 28.9 g/dl (32.0-36.5); MONO # 1.4 10^3/uL (0.0-0.8); MONO % 10.2 % (2.0-8.0); NEUTROPHILS # 7.7 10^3/uL (1.5-8.5); NEUTROPHILS % 54.7 % (36.0-66.0); PLATELET COUNT, AUTOMATED 254 10^3/uL (150-450); RED BLOOD COUNT 4.67 10^6/uL (4.00-5.40); WHITE BLOOD COUNT 14.1 10^3/uL (4.0-10.0)
[2022-04-11 08:58] LABS: BLOOD UREA NITROGEN 15 MG/DL (7-18); CALCIUM LEVEL 9.9 MG/DL (8.5-10.1); CARBON DIOXIDE LEVEL 42 MEQ/L (21-32); CHLORIDE LEVEL 96 MEQ/L (98-107); CREATININE FOR GFR 0.55 MG/DL (0.55-1.30); GLOMERULAR FILTRATION RATE > 60.0 (>51); GLUCOSE, FASTING 77 MG/DL (70-100); POTASSIUM SERUM 3.9 MEQ/L (3.5-5.1); SODIUM LEVEL 139 MEQ/L (136-145)
[2022-04-11] MEDS ORDERED: predniSONE 20 MG TAB PO SCH (09:00)
[2022-04-11] MEDS: NICOTINE 21MG/24HR 1 EA TRANSDERMAL TD SCH (09:06)
[2022-04-11] MEDS: DOCUSATE SODIUM 100MG CAPSULE PO SCH (09:07)
[2022-04-11] MEDS: ENOXAPARIN 40MG/0.4ML SYRINGE (J1650 PER 10MG) SC SCH (09:07)
[2022-04-11] MEDS: PARoxetine 20MG TABLET PO SCH (09:07)
[2022-04-11] MEDS: FOLIC ACID 1MG TAB PO SCH (09:07)
[2022-04-11] MEDS: OMEPRAZOLE 20MG CAP PO SCH (09:10)
[2022-04-11 09:11] VITALS: BP 132/67
[2022-04-11] MEDS: DOXYCYCLINE HYCLATE 100MG TABLET PO SCH (09:11)
[2022-04-11] MEDS: MULTIVITAMINS/MINERALS THERAP 1 TAB PO SCH (09:11)
[2022-04-11] MEDS: ENALAPRIL MALEATE 5 MG TAB PO SCH (09:11)
[2022-04-11] MEDS: OXAZEPAM 10MG CAP PO SCH (09:11)
[2022-04-11] MEDS: FORMOTEROL FUMARATE 20 MCG/2 ML INHALATION SOLUTION (PERFOROMIST) INH SCH (11:22)
[2022-04-11] MEDS ORDERED: IPRATROPIUM 0.5MG/ALBUTEROL 2.5MG INH SOL UD 3ML (DUONEB) NEB PRN (11:30)
== END 2022-04-11 13:40 | disposition home or self-care (01) | DRG 189 ==
LOC: M ICU 04-05 00:08 → M MS5PR 04-10 21:11
PROVIDERS: ADMIT Internal Medicine; ATTEND General Practice
DX: J96.21 Acute and chronic respiratory failure with hypoxia (principal); J18.9 Pneumonia, unspecified organism; G93.41 Metabolic encephalopathy; J44.0 Chronic obstructive pulmonary disease with (acute) lower respiratory infection; J44.1 Chronic obstructive pulmonary disease with (acute) exacerbation; J98.11 Atelectasis; F41.9 Anxiety disorder, unspecified; F32.A Depression, unspecified; F17.200 Nicotine dependence, unspecified, uncomplicated; I10 Essential (primary) hypertension; J96.22 Acute and chronic respiratory failure with hypercapnia; J20.9 Acute bronchitis, unspecified; F10.10 Alcohol abuse, uncomplicated; R73.9 Hyperglycemia, unspecified; Z99.81 Dependence on supplemental oxygen; G47.00 Insomnia, unspecified; K21.9 Gastro-esophageal reflux disease without esophagitis; Z79.899 Other long term (current) drug therapy; Z91.048 Other nonmedicinal substance allergy status

== ENCOUNTER 2024-09-11 16:41 | Inpatient (IN) | payer MEDICARE, MEDICAID ==
[2024-09-11] VITALS (26 sets, daily range): BP systolic 93–127; BP diastolic 52–67; TEMP 98.2–99.1; O2SAT 90–100
[~2024-09-11] VITALS: Ht 154.9 cm; Wt 48.2 kg
[~2024-09-11 16:41] MED LIST changes: -ATOR1TAB21 PO; -DILT120T11 PO; -METO1TAB32 PO; -MONT10TA97 PO; -VENTAER INH
[2024-09-11] MEDS ORDERED: MIDAZOLAM 100MG/100ML-0.9%NACL 100 MG in IV 1 EA IV SCH (17:50)
[2024-09-11 18:31] LABS: IONIZED CALCIUM 4.7 MG/DL (4.5-5.3); VENOUS BASE EXCESS 7.6 (-2.0-2.0); VENOUS HCO3 36.3 MMOL/L (23.0-27.0); VENOUS O2 SATURATION 90.6 % (60.0-80.0); VENOUS PARTIAL PRESSURE CO2 74.7 mmHg (38.0-50.0); VENOUS PARTIAL PRESSURE O2 68.4 mmHg (30.0-50.0); VENOUS PH 7.304 UNITS (7.330-7.430); VENOUS STANDARD HCO3 31.3 MMOL/L; VENOUS TOTAL CO2 38.6 MMOL/L (24.0-28.0)
[2024-09-11] MEDS ORDERED: LIDOCAINE 1% MDV 20ML VIAL As Ordered ONE (18:39)
[2024-09-11 18:45] LABS: BASO % 0.3 % (0.0-1.0); EOS % 0.1 % (0.0-3.0); HEMATOCRIT 36.5 % (36.0-47.0); HEMOGLOBIN 10.5 g/dl (12.0-15.5); LYMPH # 1.3 10^3/uL (1.5-5.0); LYMPH % 11.4 % (24.0-44.0); MEAN CORPUSCULAR HEMOGLOBIN 28.5 pg (27.0-33.0); MEAN CORPUSCULAR HGB CONC 28.8 g/dl (32.0-36.5); MEAN CORPUSCULAR VOLUME 99.2 fl (80.0-96.0); MONO # 1.3 10^3/uL (0.0-0.8); MONO % 11.3 % (2.0-8.0); NEUTROPHILS # 8.5 10^3/uL (1.5-8.5); NEUTROPHILS % 75.8 % (36.0-66.0); PLATELET COUNT, AUTOMATED 298 10^3/uL (150-450); RED BLOOD COUNT 3.68 10^6/uL (4.00-5.40); WHITE BLOOD COUNT 11.1 10^3/uL (4.0-10.0)
[2024-09-11 19:02] LABS: ALBUMIN 1.8 G/DL (3.2-5.2); ALKALINE PHOSPHATASE 69 U/L (35-104); ALT/SGPT < 9 U/L (7.0-40); AST/SGOT 8 U/L (<34); BILIRUBIN,TOTAL 0.2 MG/DL (0.3-1.2); BLOOD UREA NITROGEN 13 MG/DL (9-23); CALCIUM LEVEL 8.7 MG/DL (8.3-10.6); CARBON DIOXIDE LEVEL 36 MMOL/L (20-31); CHLORIDE LEVEL 102 MMOL/L (98-107); CREATININE FOR GFR 0.44 MG/DL (0.55-1.30); GLOMERULAR FILTRATION RATE > 60.0 (>45); GLUCOSE, FASTING 87 MG/DL (74-106); PHOSPHORUS LEVEL 2.2 MG/DL (2.4-5.1); POTASSIUM SERUM 4.3 MMOL/L (3.5-5.1); SODIUM LEVEL 145 MMOL/L (136-145); TOTAL PROTEIN 5.8 G/DL (5.7-8.2)
[2024-09-11] MEDS: LIDOCAINE 1% MDV 20ML VIAL SC ONE (19:02)
[2024-09-11 19:03] LABS: THYROID STIMULATING HORMONE 0.473 uIU/ML (0.55-4.78)
[2024-09-11 19:04] LABS: FREE T4 1.09 NG/DL (0.89-1.76)
[2024-09-11 19:13] LABS: PROCALCITONIN 0.11 ng/ml
[2024-09-11] MEDS ORDERED: FENTANYL DRIP LOCK BOX KEY 1 EACH XX PRN (19:45)
[2024-09-11] MEDS: NOREPINEPHRINE 4MG IN D5 250ML 4 MG in IV 1 EA IV SCH (19:52)
[2024-09-11] MEDS: GLYCOPYRROLATE INJ 0.2 MG/ML 2 ML VIAL NEB SCH (20:15)
[2024-09-11] MEDS: FORMOTEROL FUMARATE 20 MCG/2 ML INHALATION SOLUTION (PERFOROMIST) INH SCH (20:15)
[2024-09-11] MEDS: SODIUM PHOSPHATE INJ 30 MMOL in D5W 500 ML IV ONE (21:01)
[2024-09-11] MEDS: MAG SULF 1GM/100ML (MAG RUN) 1 GM in IV 1 EA IV SCH (21:02)
[2024-09-11] MEDS: methylPREDNISolone 125MG 2ML VIAL IV SCH (21:02)
[2024-09-11 21:16] LABS: APPEARANCE, URINE HAZY (CLEAR); BACTERIA, URINE AUTO NEGATIVE (NEGATIVE); BILIRUBIN, URINE AUTO 1+ (NEGATIVE); BLOOD, URINE BLOOD NEGATIVE (NEGATIVE); COLOR, URINE AMBER (YELLOW); GLUCOSE, URINE (UA) AUTO NEGATIVE (NEGATIVE); GRANULAR CAST, URINE AUTO 4 /LPF; KETONE, URINE AUTO 1+ mg/dL (NEGATIVE); LEUKOCYTE ESTERASE, URINE AUTO 1+ (NEGATIVE); MUCUS, URINE SMALL (NEGATIVE); NITRITE, URINE AUTO NEGATIVE (NEGATIVE); PROTEIN, URINE AUTO 2+ mg/dL (NEGATIVE); RBC, URINE AUTO 3 /HPF (0-3); SQUAMOUS EPITHELIAL CELL UR AU 2 /HPF (0-6); WBC, URINE AUTO 40 /HPF (0-3)
[2024-09-11] MEDS: fentaNYL CITRATE/NaCl 1,000 MCG in IV 1 EA IV SCH (21:21)
[2024-09-12] VITALS (49 sets, daily range): BP systolic 103–192; BP diastolic 59–95; TEMP 99.1–100; O2SAT 87–99
[2024-09-12 05:46] LABS: BASO % 0.2 % (0.0-1.0); HEMATOCRIT 32.6 % (36.0-47.0); HEMOGLOBIN 9.5 g/dl (12.0-15.5); LYMPH # 0.6 10^3/uL (1.5-5.0); LYMPH % 6.9 % (24.0-44.0); MEAN CORPUSCULAR HGB CONC 29.1 g/dl (32.0-36.5); MEAN CORPUSCULAR VOLUME 96.2 fl (80.0-96.0); MONO # 0.4 10^3/uL (0.0-0.8); MONO % 4.1 % (2.0-8.0); NEUTROPHILS % 88.1 % (36.0-66.0); PLATELET COUNT, AUTOMATED 255 10^3/uL (150-450); RED BLOOD COUNT 3.39 10^6/uL (4.00-5.40); WHITE BLOOD COUNT 9.1 10^3/uL (4.0-10.0)
[2024-09-12 06:20] LABS: ALBUMIN 1.7 G/DL (3.2-5.2); ALKALINE PHOSPHATASE 62 U/L (35-104); ALT/SGPT < 9 U/L (7.0-40); AST/SGOT < 8 U/L (<34); BILIRUBIN,TOTAL 0.2 MG/DL (0.3-1.2); BLOOD UREA NITROGEN 16 MG/DL (9-23); CALCIUM LEVEL 8.5 MG/DL (8.3-10.6); CARBON DIOXIDE LEVEL > 40.0 MMOL/L (20-31); CHLORIDE LEVEL 99 MMOL/L (98-107); CREATININE FOR GFR 0.49 MG/DL (0.55-1.30); GLOMERULAR FILTRATION RATE > 60.0 (>45); GLUCOSE, FASTING 129 MG/DL (74-106); POTASSIUM SERUM 4.1 MMOL/L (3.5-5.1); SODIUM LEVEL 143 MMOL/L (136-145); TOTAL PROTEIN 5.7 G/DL (5.7-8.2)
[2024-09-12 06:39] LABS: MAGNESIUM LEVEL 1.7 MG/DL (1.8-2.4)
[2024-09-12] MEDS: MAG SULF 1GM/100ML (MAG RUN) 1 GM in IV 1 EA IV ONE (08:25)
[2024-09-12] MEDS: cefTRIAXone SOD 1 GM in DEXTROSE 5% (D5W) ADV/MINI-BAG 50 ML IV SCH (08:26)
[2024-09-12] MEDS: ENOXAPARIN 40MG/0.4ML SYRINGE (J1650 PER 10MG) SC SCH (08:26)
[2024-09-12] MEDS: PANTOPRAZOLE 40MG VIAL IV SCH (08:26)
[2024-09-12] MEDS ORDERED: dilTIAZem 120MG **CD** CAPSULE PO SCH (09:00)
[2024-09-12] MEDS ORDERED: METOPROLOL SUCC *XL* 25MG TAB (TopROL *XL*) PO SCH (09:00)
[2024-09-12] MEDS: AZITHROMYCIN INJ 500 MG, VIAL MATE ADAPTER 1 EACH in NS 250 ML IV SCH (10:23)
[2024-09-12 11:45] LABS: PHOSPHORUS LEVEL 3.5 MG/DL (2.4-5.1)
[2024-09-12] MEDS ORDERED: ATOR1TAB21 PO (12:48)
[2024-09-12] MEDS ORDERED: VENTAER INH (12:48)
[2024-09-12] MEDS ORDERED: HOME MED LIST COMPLETE! XX SCH ×2 (12:50→14:10)
[2024-09-12] MEDS ORDERED: DILT120T11 PO (14:09)
[2024-09-12] MEDS ORDERED: MONT10TA97 PO (14:09)
[2024-09-12] MEDS ORDERED: METO1TAB32 PO (14:09)
[2024-09-12] MEDS: propofoL 1,000 MG in IV 1 EA IV SCH (19:45)
[2024-09-12] MEDS: METOPROLOL TART 12.5 MG PER 1/2 TAB PO SCH (20:58)
[2024-09-12] MEDS: MONTELUKAST 10 MG TAB PO SCH (20:58)
[2024-09-12] MEDS: LABETALOL 100MG/20ML VIAL IV STA (21:31)
[2024-09-13] VITALS (33 sets, daily range): BP systolic 135–195; BP diastolic 66–111; TEMP 98.1–99.3; O2SAT 87–100
[2024-09-13] MEDS: LABETALOL 100MG/20ML VIAL IV ONE (02:42)
[2024-09-13 04:57] LABS: VENOUS BASE EXCESS 12.8 (-2.0-2.0); VENOUS O2 SATURATION 92.4 % (60.0-80.0); VENOUS PARTIAL PRESSURE O2 66.3 mmHg (30.0-50.0); VENOUS PH 7.523 UNITS (7.330-7.430); VENOUS STANDARD HCO3 36.4 MMOL/L; VENOUS TOTAL CO2 38.4 MMOL/L (24.0-28.0)
[2024-09-13 05:21] LABS: BASO % 0.2 % (0.0-1.0); HEMATOCRIT 29.7 % (36.0-47.0); HEMOGLOBIN 9.1 g/dl (12.0-15.5); LYMPH # 0.7 10^3/uL (1.5-5.0); LYMPH % 11.6 % (24.0-44.0); MEAN CORPUSCULAR HGB CONC 30.6 g/dl (32.0-36.5); MEAN CORPUSCULAR VOLUME 94.6 fl (80.0-96.0); MONO # 0.5 10^3/uL (0.0-0.8); MONO % 9.1 % (2.0-8.0); NEUTROPHILS # 4.4 10^3/uL (1.5-8.5); NEUTROPHILS % 78.4 % (36.0-66.0); PLATELET COUNT, AUTOMATED 239 10^3/uL (150-450); RED BLOOD COUNT 3.14 10^6/uL (4.00-5.40); WHITE BLOOD COUNT 5.6 10^3/uL (4.0-10.0)
[2024-09-13] MEDS: hydrALAZINE 20MG/ML 1ML VIAL IV ONE (05:27)
[2024-09-13 05:36] LABS: ALBUMIN 1.8 G/DL (3.2-5.2); ALKALINE PHOSPHATASE 59 U/L (35-104); ALT/SGPT < 9 U/L (7.0-40); AST/SGOT < 8 U/L (<34); BILIRUBIN,TOTAL 0.2 MG/DL (0.3-1.2); BLOOD UREA NITROGEN 14 MG/DL (9-23); CALCIUM LEVEL 9.3 MG/DL (8.3-10.6); CARBON DIOXIDE LEVEL 39 MMOL/L (20-31); CHLORIDE LEVEL 100 MMOL/L (98-107); CREATININE FOR GFR 0.39 MG/DL (0.55-1.30); GLOMERULAR FILTRATION RATE > 60.0 (>45); GLUCOSE, FASTING 123 MG/DL (74-106); MAGNESIUM LEVEL 1.8 MG/DL (1.8-2.4); PHOSPHORUS LEVEL 2.2 MG/DL (2.4-5.1); POTASSIUM SERUM 3.7 MMOL/L (3.5-5.1); SODIUM LEVEL 145 MMOL/L (136-145); TOTAL PROTEIN 5.9 G/DL (5.7-8.2)
[2024-09-13] MEDS: hydrALAZINE 20MG/ML 1ML VIAL IV PRN (09:13)
[2024-09-13] MEDS: POTASSIUM PHOSPHATE INJ 30 MMOL in D5W 500 ML IV ONE (09:54)
[2024-09-13] MEDS: IPRATROPIUM 0.5MG/ALBUTEROL 2.5MG INH SOL UD 3ML (DUONEB) NEB PRN (11:49)
[2024-09-13 11:58] LABS: PROCALCITONIN 0.08 ng/ml
[2024-09-13] MEDS: LR 1,000 ML IV SCH (12:50)
[2024-09-13] MEDS: METOPROLOL TART 25 MG TABLET PO SCH (15:07)
[2024-09-13] MEDS ORDERED: LORazepam 2 MG TAB PO PRN (17:30)
[2024-09-13] MEDS: THIAMINE 100 MG TAB PO SCH (18:29)
[2024-09-13] MEDS ORDERED: NICOTINE 14 MG/24 HR TRANSDERMAL TD PRN (18:30)
[2024-09-13] MEDS ORDERED: QUEtiapine FUMARATE 25 MG TAB PO PRN (18:30)
[2024-09-13] MEDS: IPRATROPIUM 0.5MG/ALBUTEROL 2.5MG INH SOL UD 3ML (DUONEB) NEB SCH (19:20)
[2024-09-13] MEDS: BACTRIM 160MG/800MG DS TAB PO SCH (20:29)
[2024-09-13] MEDS ORDERED: dilTIAZem 60 MG TAB PO SCH (21:00)
[2024-09-13] MEDS: CAPTOpril 6.25 MG PER 1/2 TABLET PO SCH (23:33)
[2024-09-14] VITALS: BP 127/63; TEMP 97.9; O2SAT 96
[2024-09-14 04:00] VITALS: BP 138/65; TEMP 98.6; O2SAT 90
[2024-09-14 04:33] LABS: BASO % 0.1 % (0.0-1.0); HEMATOCRIT 33.2 % (36.0-47.0); HEMOGLOBIN 10.2 g/dl (12.0-15.5); LYMPH # 1.5 10^3/uL (1.5-5.0); MEAN CORPUSCULAR HEMOGLOBIN 28.7 pg (27.0-33.0); MEAN CORPUSCULAR HGB CONC 30.7 g/dl (32.0-36.5); MEAN CORPUSCULAR VOLUME 93.5 fl (80.0-96.0); MONO % 12.9 % (2.0-8.0); NEUTROPHILS # 5.3 10^3/uL (1.5-8.5); NEUTROPHILS % 65.5 % (36.0-66.0); PLATELET COUNT, AUTOMATED 245 10^3/uL (150-450); RED BLOOD COUNT 3.55 10^6/uL (4.00-5.40); WHITE BLOOD COUNT 8.1 10^3/uL (4.0-10.0)
[2024-09-14 05:05] LABS: ALBUMIN 1.9 G/DL (3.2-5.2); ALKALINE PHOSPHATASE 54 U/L (35-104); ALT/SGPT < 9 U/L (7.0-40); AST/SGOT 9 U/L (<34); BILIRUBIN,TOTAL 0.2 MG/DL (0.3-1.2); BLOOD UREA NITROGEN 8 MG/DL (9-23); CALCIUM LEVEL 8.8 MG/DL (8.3-10.6); CARBON DIOXIDE LEVEL > 40.0 MMOL/L (20-31); CHLORIDE LEVEL 94 MMOL/L (98-107); CREATININE FOR GFR 0.36 MG/DL (0.55-1.30); GLOMERULAR FILTRATION RATE > 60.0 (>45); GLUCOSE, FASTING 93 MG/DL (74-106); MAGNESIUM LEVEL 1.4 MG/DL (1.8-2.4); PHOSPHORUS LEVEL 2.5 MG/DL (2.4-5.1); POTASSIUM SERUM 3.9 MMOL/L (3.5-5.1); SODIUM LEVEL 137 MMOL/L (136-145)
[2024-09-14] MEDS: MAG SULF 1GM/100ML (MAG RUN) 1 GM in IV 1 EA IV SCH (05:40)
[2024-09-14 08:00] VITALS: BP 142/73; TEMP 98; O2SAT 93
[2024-09-14] MEDS: methylPREDNISolone 125MG 2ML VIAL IV SCH (08:37)
[2024-09-14] MEDS: PARoxetine 20MG TABLET PO SCH (08:37)
[2024-09-14] MEDS: VITAMIN D 1,000 INTERNATIONAL UNITS TABLET PO SCH (08:38)
[2024-09-14] MEDS: MULTIVITAMINS/MINERALS THERAP 1 TAB PO SCH (08:38)
[2024-09-14] MEDS: OMEPRAZOLE 20MG CAP PO SCH (08:38)
[2024-09-14] MEDS: CETIRIZINE (ZyrTEC) 10 MG TAB PO SCH (08:39)
[2024-09-14] MEDS: ATORVASTATIN 20 MG TAB PO SCH (08:39)
[2024-09-14] MEDS: FOLIC ACID 1MG TAB PO SCH (08:39)
[2024-09-14 11:58] LABS: IRON (FE) 61 UG/DL (50-170); PERCENT SATURATION 32.1 % (13.2-45.0); TOTAL IRON BINDING CAPACITY 190 UG/DL (250-425)
[2024-09-14 12:00] LABS: FERRITIN 190.4 NG/ML (7.3-270.7); VITAMIN B12 LEVEL 920 PG/ML (211-911)
[2024-09-14 12:06] LABS: FOLATE > 24.00 NG/ML (>5.4)
[2024-09-14 14:00] VITALS: BP 124/65; TEMP 97.6; O2SAT 97
[2024-09-14] MEDS: ACETAMINOPHEN 325 MG TAB PO PRN (16:52)
[2024-09-14 19:00] VITALS: O2SAT 97
[2024-09-14 20:00] VITALS: BP 115/59; TEMP 97.2; O2SAT 92
[2024-09-15] VITALS (20 sets, daily range): BP systolic 108–151; BP diastolic 55–72; TEMP 98.2–100.1; O2SAT 82–100
[2024-09-15] MEDS ORDERED: lisinopriL 40MG TAB PO SCH (09:00)
[2024-09-15] MEDS ORDERED: ISOVUE-370 76% 100ML VIAL As Ordered ONE (11:40)
[2024-09-15 11:50] LABS: VENOUS BASE EXCESS 8.3 (-2.0-2.0); VENOUS HCO3 35.1 MMOL/L (23.0-27.0); VENOUS O2 SATURATION 79.9 % (60.0-80.0); VENOUS PARTIAL PRESSURE CO2 59.4 mmHg (38.0-50.0); VENOUS PARTIAL PRESSURE O2 49.3 mmHg (30.0-50.0); VENOUS PH 7.389 UNITS (7.330-7.430); VENOUS STANDARD HCO3 31.7 MMOL/L; VENOUS TOTAL CO2 36.9 MMOL/L (24.0-28.0)
[2024-09-15 11:54] LABS: BASO % 0.1 % (0.0-1.0); EOS % 0.1 % (0.0-3.0); HEMATOCRIT 34.8 % (36.0-47.0); HEMOGLOBIN 10.7 g/dl (12.0-15.5); LYMPH # 0.8 10^3/uL (1.5-5.0); MEAN CORPUSCULAR HEMOGLOBIN 28.5 pg (27.0-33.0); MEAN CORPUSCULAR HGB CONC 30.7 g/dl (32.0-36.5); MEAN CORPUSCULAR VOLUME 92.8 fl (80.0-96.0); MONO # 0.6 10^3/uL (0.0-0.8); NEUTROPHILS # 12.3 10^3/uL (1.5-8.5); NEUTROPHILS % 88.1 % (36.0-66.0); PLATELET COUNT, AUTOMATED 300 10^3/uL (150-450); RED BLOOD COUNT 3.75 10^6/uL (4.00-5.40); WHITE BLOOD COUNT 13.9 10^3/uL (4.0-10.0)
[2024-09-15 12:12] LABS: INR 1.13; PROTHROMBIN TIME 14.8 SECONDS (12.5-14.5)
[2024-09-15 12:19] LABS: CHOLESTEROL RISK RATIO 1.9 (<5); HDL CHOLESTEROL 59.8 MG/DL (>40); NON-HDL-C 54.2 MG/DL
[2024-09-15 12:22] LABS: HEMOGLOBIN A1c 4.8 % (4.0-6.0)
[2024-09-15 13:07] LABS: FREE KAPPA LIGHT CHAINS SERUM 50.5 mg/L (3.3-19.4); FREE LAMBDA LIGHT CHAINS SERUM 39.9 mg/L (5.7-26.3); KAPPA/LAMBDA RATIO SERUM 1.27 (0.26-1.65)
[2024-09-15] MEDS: CLOPIDOGREL 75 MG TAB PO SCH (13:32)
[2024-09-15] MEDS: ASPIRIN 81MG CHEW TABLET PO ONE (13:32)
[2024-09-15 13:58] LABS: ALBUMIN 2.3 G/DL (3.2-5.2); ALKALINE PHOSPHATASE 57 U/L (35-104); ALT/SGPT 9 U/L (7.0-40); AST/SGOT 11 U/L (<34); BILIRUBIN,TOTAL < 0.2 MG/DL (0.3-1.2); BLOOD UREA NITROGEN 9 MG/DL (9-23); CALCIUM LEVEL 8.9 MG/DL (8.3-10.6); CARBON DIOXIDE LEVEL 35 MMOL/L (20-31); CHLORIDE LEVEL 92 MMOL/L (98-107); CREATININE FOR GFR 0.46 MG/DL (0.55-1.30); GLOMERULAR FILTRATION RATE > 60.0 (>45); GLUCOSE, FASTING 94 MG/DL (74-106); POTASSIUM SERUM 4.5 MMOL/L (3.5-5.1); SODIUM LEVEL 137 MMOL/L (136-145); TOTAL PROTEIN 6.4 G/DL (5.7-8.2)
[2024-09-15] MEDS: NS (Normal Saline) 0.9% 1,000 ML IV ONE (22:51)
[2024-09-16] VITALS (12 sets, daily range): BP systolic 98–131; BP diastolic 48–70; TEMP 97.5–99.5; O2SAT 88–99
[2024-09-16 07:18] LABS: ALBUMIN SPEP 2.4 g/dL (3.8-4.8); ALPHA-1-GLOBULINS SO 0.4 g/dL (0.2-0.3); ALPHA-2-GLOBULINS SO 0.9 g/dL (0.5-0.9); BETA 2 GLOBULIN 0.4 g/dL (0.2-0.5); BETA-GLOBULIN SO 0.3 g/dL (0.4-0.6); GAMMA GLOBULINS SO 1.5 g/dL (0.8-1.7)
[2024-09-16 08:04] LABS: BASO % 0.2 % (0.0-1.0); EOS % 0.3 % (0.0-3.0); HEMATOCRIT 29.7 % (36.0-47.0); HEMOGLOBIN 9.1 g/dl (12.0-15.5); LYMPH # 3.7 10^3/uL (1.5-5.0); LYMPH % 34.8 % (24.0-44.0); MEAN CORPUSCULAR HEMOGLOBIN 27.9 pg (27.0-33.0); MEAN CORPUSCULAR HGB CONC 30.6 g/dl (32.0-36.5); MEAN CORPUSCULAR VOLUME 91.1 fl (80.0-96.0); MONO # 1.2 10^3/uL (0.0-0.8); MONO % 10.9 % (2.0-8.0); NEUTROPHILS # 5.3 10^3/uL (1.5-8.5); NEUTROPHILS % 50.7 % (36.0-66.0); PLATELET COUNT, AUTOMATED 241 10^3/uL (150-450); RED BLOOD COUNT 3.26 10^6/uL (4.00-5.40); WHITE BLOOD COUNT 10.5 10^3/uL (4.0-10.0)
[2024-09-16 08:26] LABS: BLOOD UREA NITROGEN 7 MG/DL (9-23); CALCIUM LEVEL 8.6 MG/DL (8.3-10.6); CARBON DIOXIDE LEVEL 36 MMOL/L (20-31); CHLORIDE LEVEL 95 MMOL/L (98-107); CREATININE FOR GFR 0.48 MG/DL (0.55-1.30); GLOMERULAR FILTRATION RATE > 60.0 (>45); GLUCOSE, FASTING 73 MG/DL (74-106); SODIUM LEVEL 136 MMOL/L (136-145)
[2024-09-16] MEDS: ASPIRIN 81MG CHEW TABLET PO SCH (09:10)
[2024-09-16] MEDS: ATORVASTATIN 20 MG TAB PO SCH (09:11)
[2024-09-16] MEDS ORDERED: PRED10TA2 PO (11:29)
[2024-09-16] MEDS ORDERED: ASPI81CH8 PO (11:29)
[2024-09-16] MEDS ORDERED: BACTDSTA PO (11:29)
[2024-09-16] MEDS ORDERED: ATOR40TA75 PO (11:29)
[2024-09-16] MEDS ORDERED: CLOP75TA2 PO (11:29)
[2024-09-16] MEDS: LR 1,000 ML IV ONE ×2 (12:23→13:38)
[2024-09-16] MEDS: LR 1,000 ML IV SCH (15:18)
[2024-09-16 20:38] LABS: FUNGITELL INTERPRETATION NEGATIVE (NEGATIVE); FUNGITELL, SERUM 37 pg/mL (<60)
[2024-09-17 01:08] LABS: FREE KAPPA LIGHT CHAINS URINE 47.18 mg/L (<=32.90); FREE LAMBDA LIGHT CHAINS URINE 4.91 mg/L (<=3.79); KAPPA/LAMBDA RATIO URINE 9.61 (<=8.69)
[2024-09-17 03:22] VITALS: BP 157/76; TEMP 97.5; O2SAT 94
[2024-09-17] MEDS ORDERED: amLODIPine 5 MG TAB PO SCH (09:00)
[2024-09-17 12:00] VITALS: BP 117/57; TEMP 97.6; O2SAT 96
[2024-09-17 12:52] LABS: PROTEIN CREATININE RATIO 244 mg/g creat (24-184); T PROTEIN CREATININE RATIO 0.244 (0.024-0.184); UPEP CREATININE 41 mg/dL (20-275); UPEP TOTAL PROTEIN 10 mg/dL (5-24)
[2024-09-20 13:02] LABS: UPEP ALBUMIN 26 %; URINE ALPHA 1 GLOBULIN 7 %; URINE ALPHA 2 GLOBULIN 17 %; URINE BETA GLOBULIN 16 %; URINE GAMMA GLOBULIN 33 %
== END 2024-09-17 13:21 | disposition home health service (06) | DRG 208 ==
LOC: M ICU 17:43 → M MSPAV 09-16 10:13
PROVIDERS: ADMIT Internal Medicine Pulmonary Disease; ATTEND Student in an Organized Health Care Education/Training Program
PROC: 5A1945Z Respiratory Ventilation, 24-96 Consecutive Hours (ICD-10-PCS; principal; 2024-09-11)
PROC: 0B948ZZ Drainage of Right Upper Lobe Bronchus, Via Natural or Artificial Opening Endoscopic (ICD-10-PCS; 2024-09-11)
PROC: 0B988ZX Drainage of Left Upper Lobe Bronchus, Via Natural or Artificial Opening Endoscopic, Diagnostic (ICD-10-PCS; 2024-09-11)
PROC: B246ZZZ Ultrasonography of Right and Left Heart (ICD-10-PCS; 2024-09-12)
DX: J96.21 Acute and chronic respiratory failure with hypoxia (principal); J15.69 Pneumonia due to other Gram-negative bacteria; J44.1 Chronic obstructive pulmonary disease with (acute) exacerbation; J44.0 Chronic obstructive pulmonary disease with (acute) lower respiratory infection; R47.01 Aphasia; I10 Essential (primary) hypertension; E78.5 Hyperlipidemia, unspecified; F17.200 Nicotine dependence, unspecified, uncomplicated; M06.9 Rheumatoid arthritis, unspecified; F10.10 Alcohol abuse, uncomplicated; J96.22 Acute and chronic respiratory failure with hypercapnia; D53.9 Nutritional anemia, unspecified; E83.42 Hypomagnesemia; E83.39 Other disorders of phosphorus metabolism; I27.20 Pulmonary hypertension, unspecified; F32.A Depression, unspecified; I65.23 Occlusion and stenosis of bilateral carotid arteries; K21.9 Gastro-esophageal reflux disease without esophagitis; Z99.81 Dependence on supplemental oxygen; Z96.659 Presence of unspecified artificial knee joint; Z79.899 Other long term (current) drug therapy; Z91.048 Other nonmedicinal substance allergy status

== ENCOUNTER → 2024-09-11 | Outpatient (REF) ==
[~2024-09-11] MED LIST changes: +ALBU6.7H6 INH; +ATOR1TAB21 PO; +AZIT-12 PO; +CEFD300CAP PO; +CEFT1INJ5 IV; +CHOL25TA2 PO; +DILT120T11 PO; +DOXY-440 PO; +FOLI1TAB11 PO; -IPRA0.00 INH; +IPRA0.00 NEB; +MELA5TAB10 PO; +METH125VL IV; +METH2.5T48 PO; +METO1TAB32 PO; +MONT10TA97 PO; +RISP-105 PO; -RISP-8 PO; +TREL1AER INH; +VENTAER INH
== END ==
LOC: M LABCFH 12:02
DX: N39.9 Disorder of urinary system, unspecified (principal)

== ENCOUNTER 2024-10-05 11:33 | Inpatient (IN) | payer MEDICARE ==
[2024-10-05] VITALS (10 sets, daily range): BP systolic 150–188; BP diastolic 73–93; TEMP 98–98.7; O2SAT 90–96
[~2024-10-05] VITALS: Ht 154.9 cm; Wt 44.3 kg
[~2024-10-05 11:33] MED LIST changes: +ASPI81CH8 PO; +ATOR1TAB21 PO; +ATOR40TA75 PO; +BACTDSTA PO; +CLOP75TA2 PO; +DILT120T11 PO; +METO1TAB32 PO; +MONT10TA97 PO; +VENTAER INH
[2024-10-05] MEDS ORDERED: ASPI81CH33 PO (16:04)
[2024-10-05] MEDS ORDERED: ATOR40TA75 PO (16:04)
[2024-10-05] MEDS ORDERED: CLOP75TA99 PO (16:04)
[2024-10-05] MEDS ORDERED: HOME MED LIST COMPLETE! XX SCH (16:05)
[2024-10-05] MEDS: methylPREDNISolone 125MG 2ML VIAL IV ONE (16:06)
[2024-10-05] MEDS: MEROPENEM INJ 1 GM in IV 1 EA IV SCH (16:06)
[2024-10-05 17:28] LABS: VENOUS HCO3 42.7 MMOL/L (23.0-27.0); VENOUS O2 SATURATION 99.3 % (60.0-80.0); VENOUS PARTIAL PRESSURE CO2 69.9 mmHg (38.0-50.0); VENOUS PARTIAL PRESSURE O2 200.4 mmHg (30.0-50.0); VENOUS PH 7.404 UNITS (7.330-7.430); VENOUS STANDARD HCO3 38.9 MMOL/L; VENOUS TOTAL CO2 44.9 MMOL/L (24.0-28.0)
[2024-10-05 18:12] LABS: ALBUMIN 2.5 G/DL (3.2-5.2); ALKALINE PHOSPHATASE 90 U/L (35-104); ALT/SGPT 13 U/L (7.0-40); AST/SGOT < 8 U/L (<34); BILIRUBIN,TOTAL 0.5 MG/DL (0.3-1.2); BLOOD UREA NITROGEN < 5 MG/DL (9-23); CALCIUM LEVEL 9.4 MG/DL (8.3-10.6); CARBON DIOXIDE LEVEL > 40.0 MMOL/L (20-31); CHLORIDE LEVEL 91 MMOL/L (98-107); CREATININE FOR GFR 0.31 MG/DL (0.55-1.30); GLOMERULAR FILTRATION RATE > 90.0 (>45); GLUCOSE, FASTING 69 MG/DL (74-106); MAGNESIUM LEVEL 1.4 MG/DL (1.8-2.4); PHOSPHORUS LEVEL 2.7 MG/DL (2.4-5.1); SODIUM LEVEL 138 MMOL/L (136-145); TOTAL PROTEIN 6.3 G/DL (5.7-8.2)
[2024-10-05] MEDS ORDERED: METOPROLOL SUCC *XL* 25MG TAB (TopROL *XL*) PO SCH (18:26)
[2024-10-05] MEDS: MAG SULF 1GM/100ML (MAG RUN) 1 GM in IV 1 EA IV ONE (18:45)
[2024-10-05] MEDS: FORMOTEROL FUMARATE 20 MCG/2 ML INHALATION SOLUTION (PERFOROMIST) INH SCH (20:07)
[2024-10-05] MEDS: GLYCOPYRROLATE INJ 0.2 MG/ML 2 ML VIAL NEB SCH (20:07)
[2024-10-05] MEDS: METOPROLOL SUCC *XL* 25MG TAB (TopROL *XL*) PO SCH (21:00)
[2024-10-05] MEDS: QUEtiapine FUMARATE 25 MG TAB PO SCH (21:00)
[2024-10-06] VITALS (32 sets, daily range): BP systolic 113–202; BP diastolic 56–134; TEMP 98.5–99.3; O2SAT 88–100
[2024-10-06] MEDS: METOPROLOL 5 MG/5 ML VIAL IV STA (00:23)
[2024-10-06] MEDS: hydrALAZINE 20MG/ML 1ML VIAL IV ONE (03:09)
[2024-10-06] MEDS: IPRATROPIUM 0.5MG/ALBUTEROL 2.5MG INH SOL UD 3ML NEB PRN (03:34)
[2024-10-06 04:31] LABS: VENOUS BASE EXCESS 18.9 (-2.0-2.0); VENOUS HCO3 46.6 MMOL/L (23.0-27.0); VENOUS O2 SATURATION 97.9 % (60.0-80.0); VENOUS PARTIAL PRESSURE CO2 69.7 mmHg (38.0-50.0); VENOUS PARTIAL PRESSURE O2 97.8 mmHg (30.0-50.0); VENOUS PH 7.443 UNITS (7.330-7.430); VENOUS SITE NOT GIVEN; VENOUS STANDARD HCO3 43.1 MMOL/L; VENOUS TOTAL CO2 48.7 MMOL/L (24.0-28.0)
[2024-10-06 04:47] LABS: BASO % 0.2 % (0.0-1.0); HEMATOCRIT 38.6 % (36.0-47.0); HEMOGLOBIN 11.5 g/dl (12.0-15.5); LYMPH # 0.9 10^3/uL (1.5-5.0); LYMPH % 13.8 % (24.0-44.0); MEAN CORPUSCULAR HEMOGLOBIN 28.3 pg (27.0-33.0); MEAN CORPUSCULAR HGB CONC 29.8 g/dl (32.0-36.5); MEAN CORPUSCULAR VOLUME 94.8 fl (80.0-96.0); MONO # 0.3 10^3/uL (0.0-0.8); MONO % 5.1 % (2.0-8.0); NEUTROPHILS # 5.1 10^3/uL (1.5-8.5); NEUTROPHILS % 80.7 % (36.0-66.0); PLATELET COUNT, AUTOMATED 279 10^3/uL (150-450); RED BLOOD COUNT 4.07 10^6/uL (4.00-5.40); WHITE BLOOD COUNT 6.3 10^3/uL (4.0-10.0)
[2024-10-06 05:24] LABS: ALBUMIN 2.6 G/DL (3.2-5.2); ALKALINE PHOSPHATASE 90 U/L (35-104); ALT/SGPT 13 U/L (7.0-40); AST/SGOT < 8 U/L (<34); BILIRUBIN,TOTAL 0.6 MG/DL (0.3-1.2); BLOOD UREA NITROGEN 8 MG/DL (9-23); CALCIUM LEVEL 9.3 MG/DL (8.3-10.6); CARBON DIOXIDE LEVEL > 40.0 MMOL/L (20-31); CHLORIDE LEVEL 87 MMOL/L (98-107); GLOMERULAR FILTRATION RATE > 90.0 (>45); GLUCOSE, FASTING 97 MG/DL (74-106); MAGNESIUM LEVEL 1.8 MG/DL (1.8-2.4); SODIUM LEVEL 139 MMOL/L (136-145); TOTAL PROTEIN 6.5 G/DL (5.7-8.2)
[2024-10-06] MEDS ORDERED: LORazepam 2 MG TAB PO PRN (07:40)
[2024-10-06] MEDS: LORazepam 2 MG/ML 1ML VIAL IV STA (07:41)
[2024-10-06] MEDS: MULTIVITAMINS/MINERALS THERAP 1 TAB PO SCH (09:00)
[2024-10-06] MEDS: ASPIRIN 81MG CHEW TABLET PO SCH (09:00)
[2024-10-06] MEDS: PARoxetine 20MG TABLET PO SCH (09:00)
[2024-10-06] MEDS ORDERED: FOLIC ACID 1MG TAB PO SCH (09:00)
[2024-10-06] MEDS: ATORVASTATIN 20 MG TAB PO SCH (09:00)
[2024-10-06] MEDS: FOLIC ACID 1MG TAB PO SCH (09:00)
[2024-10-06] MEDS: THIAMINE 100 MG TAB PO SCH (09:00)
[2024-10-06] MEDS: CLOPIDOGREL 75 MG TAB PO SCH (09:00)
[2024-10-06] MEDS: CETIRIZINE (ZyrTEC) 10 MG TAB PO SCH (09:00)
[2024-10-06] MEDS: ENOXAPARIN 40MG/0.4ML SYRINGE (J1650 PER 10MG) SC SCH (09:02)
[2024-10-06] MEDS: methylPREDNISolone 125MG 2ML VIAL IV SCH (09:03)
[2024-10-06] MEDS ORDERED: METOPROLOL 5 MG/5 ML VIAL IV SCH (09:15)
[2024-10-06 09:32] LABS: ABG BASE EXCESS 15.6 (-2.0-2.0); ABG O2 SATURATION 98.1 % (95.0-99.0); ABG PARTIAL PRESSURE O2 109.5 mmHg (75.0-100.0); ABG STANDARD HCO3 39.5 MMOL/L. (22.0-26.0); ABG TOTAL CO2 46.3 MMOL/L (23.0-31.0); ABG pH (ARTERIAL) 7.378 UNITS (7.350-7.450)
[2024-10-06] MEDS: FUROSEMIDE 100MG/10ML VIAL IV STA (09:34)
[2024-10-06 09:35] LABS: ABG PARTIAL PRESSURE CO2 76.4 mmHg (35.0-45.0)
[2024-10-06 10:08] LABS: PROCALCITONIN 0.08 ng/ml
[2024-10-06] MEDS: MONTELUKAST 10 MG TAB PO SCH (11:47)
[2024-10-06] MEDS: dexmedeTOMidine 200 MCG in IV 1 EA IV SCH (12:33)
[2024-10-06] MEDS: METOPROLOL 5 MG/5 ML VIAL IV PRN (12:44)
[2024-10-06] MEDS: PANTOPRAZOLE 40MG VIAL IV SCH (16:48)
[2024-10-06] MEDS: THIAMINE 200MG 2ML VIAL IV ONE (18:00)
[2024-10-07] VITALS (30 sets, daily range): BP systolic 107–166; BP diastolic 59–79; TEMP 97.9–99.7; O2SAT 89–100
[2024-10-07 05:26] LABS: BASO % 0.1 % (0.0-1.0); EOS % 0.4 % (0.0-3.0); HEMATOCRIT 37.4 % (36.0-47.0); HEMOGLOBIN 10.7 g/dl (12.0-15.5); LYMPH # 1.6 10^3/uL (1.5-5.0); LYMPH % 23.1 % (24.0-44.0); MEAN CORPUSCULAR HEMOGLOBIN 28.6 pg (27.0-33.0); MEAN CORPUSCULAR HGB CONC 28.6 g/dl (32.0-36.5); MONO # 1.1 10^3/uL (0.0-0.8); NEUTROPHILS # 4.3 10^3/uL (1.5-8.5); NEUTROPHILS % 61.1 % (36.0-66.0); PLATELET COUNT, AUTOMATED 278 10^3/uL (150-450); RED BLOOD COUNT 3.74 10^6/uL (4.00-5.40); WHITE BLOOD COUNT 7.1 10^3/uL (4.0-10.0)
[2024-10-07 05:51] LABS: ABG BASE EXCESS 24.3 (-2.0-2.0); ABG HCO3 54.5 MMOL/L (22.0-26.0); ABG O2 SATURATION 92.9 % (95.0-99.0); ABG PARTIAL PRESSURE O2 69.6 mmHg (75.0-100.0); ABG TOTAL CO2 57.5 MMOL/L (23.0-31.0); ABG pH (ARTERIAL) 7.369 UNITS (7.350-7.450)
[2024-10-07 05:51] LABS: PROCALCITONIN 0.06 ng/ml
[2024-10-07 05:53] LABS: ABG PARTIAL PRESSURE CO2 96.7 mmHg (35.0-45.0)
[2024-10-07 05:53] LABS: ALBUMIN 2.4 G/DL (3.2-5.2); ALKALINE PHOSPHATASE 71 U/L (35-104); ALT/SGPT 11 U/L (7.0-40); AST/SGOT < 8 U/L (<34); BILIRUBIN,TOTAL 0.4 MG/DL (0.3-1.2); BLOOD UREA NITROGEN 13 MG/DL (9-23); CALCIUM LEVEL 9.3 MG/DL (8.3-10.6); CARBON DIOXIDE LEVEL > 40.0 MMOL/L (20-31); CHLORIDE LEVEL 85 MMOL/L (98-107); CREATININE FOR GFR 0.33 MG/DL (0.55-1.30); GLOMERULAR FILTRATION RATE > 90.0 (>45); GLUCOSE, FASTING 78 MG/DL (74-106); MAGNESIUM LEVEL 1.8 MG/DL (1.8-2.4); POTASSIUM SERUM 3.9 MMOL/L (3.5-5.1); SODIUM LEVEL 139 MMOL/L (136-145); TOTAL PROTEIN 6.1 G/DL (5.7-8.2)
[2024-10-07 10:07] LABS: ABG BASE EXCESS 26.5 (-2.0-2.0); ABG FIO2 80; ABG HCO3 54.7 MMOL/L (22.0-26.0); ABG MODE OF VENT avaps; ABG O2 SATURATION 98.3 % (95.0-99.0); ABG PARTIAL PRESSURE O2 107.6 mmHg (75.0-100.0); ABG PEEP 8; ABG PULSE OX 96; ABG STANDARD HCO3 51.8 MMOL/L. (22.0-26.0); ABG TIDAL VOLUME 350 cc; ABG TOTAL CO2 57.1 MMOL/L (23.0-31.0); ABG pH (ARTERIAL) 7.472 UNITS (7.350-7.450)
[2024-10-07 10:11] LABS: ABG PARTIAL PRESSURE CO2 76.6 mmHg (35.0-45.0)
[2024-10-08] VITALS (16 sets, daily range): BP systolic 159–189; BP diastolic 77–92; TEMP 98–98.9; O2SAT 91–98
[2024-10-08 04:57] LABS: BASO % 0.1 % (0.0-1.0); EOS % 0.5 % (0.0-3.0); HEMATOCRIT 32.9 % (36.0-47.0); HEMOGLOBIN 9.7 g/dl (12.0-15.5); LYMPH # 2.2 10^3/uL (1.5-5.0); LYMPH % 26.3 % (24.0-44.0); MEAN CORPUSCULAR HEMOGLOBIN 28.4 pg (27.0-33.0); MEAN CORPUSCULAR HGB CONC 29.5 g/dl (32.0-36.5); MEAN CORPUSCULAR VOLUME 96.2 fl (80.0-96.0); MONO # 0.9 10^3/uL (0.0-0.8); MONO % 10.2 % (2.0-8.0); NEUTROPHILS # 5.2 10^3/uL (1.5-8.5); NEUTROPHILS % 62.5 % (36.0-66.0); PLATELET COUNT, AUTOMATED 253 10^3/uL (150-450); RED BLOOD COUNT 3.42 10^6/uL (4.00-5.40); WHITE BLOOD COUNT 8.3 10^3/uL (4.0-10.0)
[2024-10-08 05:33] LABS: ABG BASE EXCESS 23.6 (-2.0-2.0); ABG HCO3 51.2 MMOL/L (22.0-26.0); ABG O2 SATURATION 94.4 % (95.0-99.0); ABG PARTIAL PRESSURE O2 75.9 mmHg (75.0-100.0); ABG STANDARD HCO3 48.1 MMOL/L. (22.0-26.0); ABG TOTAL CO2 53.5 MMOL/L (23.0-31.0); ABG pH (ARTERIAL) 7.459 UNITS (7.350-7.450)
[2024-10-08 05:35] LABS: ABG PARTIAL PRESSURE CO2 73.8 mmHg (35.0-45.0)
[2024-10-08 05:47] LABS: ALBUMIN 2.3 G/DL (3.2-5.2); ALKALINE PHOSPHATASE 65 U/L (35-104); ALT/SGPT 9 U/L (7.0-40); AST/SGOT 9 U/L (<34); BILIRUBIN,TOTAL 0.5 MG/DL (0.3-1.2); BLOOD UREA NITROGEN 10 MG/DL (9-23); CALCIUM LEVEL 9.2 MG/DL (8.3-10.6); CARBON DIOXIDE LEVEL > 40.0 MMOL/L (20-31); CHLORIDE LEVEL 85 MMOL/L (98-107); CREATININE FOR GFR 0.28 MG/DL (0.55-1.30); GLOMERULAR FILTRATION RATE > 90.0 (>45); GLUCOSE, FASTING 85 MG/DL (74-106); SODIUM LEVEL 139 MMOL/L (136-145); TOTAL PROTEIN 5.9 G/DL (5.7-8.2)
[2024-10-09] VITALS (7 sets, daily range): BP systolic 133–176; BP diastolic 70–85; TEMP 97.7–98.5; O2SAT 84–98
[2024-10-09 05:14] LABS: HEMATOCRIT 34.2 % (36.0-47.0); HEMOGLOBIN 10.3 g/dl (12.0-15.5); MEAN CORPUSCULAR HEMOGLOBIN 28.1 pg (27.0-33.0); MEAN CORPUSCULAR HGB CONC 30.1 g/dl (32.0-36.5); MEAN CORPUSCULAR VOLUME 93.4 fl (80.0-96.0); PLATELET COUNT, AUTOMATED 281 10^3/uL (150-450); RED BLOOD COUNT 3.66 10^6/uL (4.00-5.40); WHITE BLOOD COUNT 7.8 10^3/uL (4.0-10.0)
[2024-10-09 05:33] LABS: ALBUMIN 2.3 G/DL (3.2-5.2); ALKALINE PHOSPHATASE 64 U/L (35-104); ALT/SGPT < 9 U/L (7.0-40); AST/SGOT < 8 U/L (<34); BILIRUBIN,TOTAL 0.4 MG/DL (0.3-1.2); BLOOD UREA NITROGEN 12 MG/DL (9-23); CALCIUM LEVEL 9.6 MG/DL (8.3-10.6); CARBON DIOXIDE LEVEL > 40.0 MMOL/L (20-31); CHLORIDE LEVEL 92 MMOL/L (98-107); CREATININE FOR GFR 0.31 MG/DL (0.55-1.30); GLOMERULAR FILTRATION RATE > 90.0 (>45); GLUCOSE, FASTING 81 MG/DL (74-106); POTASSIUM SERUM 3.9 MMOL/L (3.5-5.1); SODIUM LEVEL 138 MMOL/L (136-145); TOTAL PROTEIN 6.1 G/DL (5.7-8.2)
[2024-10-09 06:11] LABS: ABG BASE EXCESS 18.8 (-2.0-2.0); ABG HCO3 47.5 MMOL/L (22.0-26.0); ABG PARTIAL PRESSURE O2 78.6 mmHg (75.0-100.0); ABG STANDARD HCO3 42.8 MMOL/L. (22.0-26.0); ABG pH (ARTERIAL) 7.384 UNITS (7.350-7.450)
[2024-10-09 06:12] LABS: ABG PARTIAL PRESSURE CO2 81.4 mmHg (35.0-45.0)
[2024-10-09 06:27] LABS: ANISOCYTOSIS 1+; ATYPICAL LYMPH 2 % (0-5); EOSINOPHILS 1 % (0-3); LYMPHOCYTES 35 % (16-44); MONOCYTES 12 % (0-5); NEUTROPHILS 50 % (28-66)
[2024-10-09 06:29] LABS: HYPOCHROMASIA 1+; PLATELET ESTIMATE NORMAL (NORMAL)
[2024-10-09] MEDS: predniSONE 20 MG TAB PO SCH (08:16)
[2024-10-09] MEDS: METOPROLOL SUCC (TopROL XL) 50MG **XL** TAB PO SCH (08:19)
[2024-10-09] MEDS: PANTOPRAZOLE 40MG TAB (PROTONIX) PO SCH (15:33)
[2024-10-10] VITALS (7 sets, daily range): BP systolic 115–174; BP diastolic 65–88; TEMP 97.7–99.1; O2SAT 91–98
[2024-10-10 05:30] LABS: ALBUMIN 2.2 G/DL (3.2-5.2); ALKALINE PHOSPHATASE 59 U/L (35-104); ALT/SGPT 12 U/L (7.0-40); AST/SGOT 9 U/L (<34); BILIRUBIN,TOTAL 0.3 MG/DL (0.3-1.2); BLOOD UREA NITROGEN 14 MG/DL (9-23); CALCIUM LEVEL 9.5 MG/DL (8.3-10.6); CARBON DIOXIDE LEVEL 40 MMOL/L (20-31); CHLORIDE LEVEL 92 MMOL/L (98-107); CREATININE FOR GFR 0.34 MG/DL (0.55-1.30); GLOMERULAR FILTRATION RATE > 90.0 (>45); GLUCOSE, FASTING 82 MG/DL (74-106); POTASSIUM SERUM 4.2 MMOL/L (3.5-5.1); SODIUM LEVEL 134 MMOL/L (136-145); TOTAL PROTEIN 5.9 G/DL (5.7-8.2)
[2024-10-10 05:32] LABS: ABG BASE EXCESS 7.7 (-2.0-2.0); ABG HCO3 34.4 MMOL/L (22.0-26.0); ABG O2 SATURATION 94.4 % (95.0-99.0); ABG PARTIAL PRESSURE CO2 58.2 mmHg (35.0-45.0); ABG PARTIAL PRESSURE O2 75.1 mmHg (75.0-100.0); ABG STANDARD HCO3 31.5 MMOL/L. (22.0-26.0); ABG TOTAL CO2 36.1 MMOL/L (23.0-31.0); ABG pH (ARTERIAL) 7.389 UNITS (7.350-7.450)
[2024-10-10] MEDS ORDERED: OMEPRAZOLE 20MG CAP PO SCH (09:00)
[2024-10-10] MEDS ORDERED: BACT800T5 PO (15:57)
[2024-10-10] MEDS ORDERED: NICO14DI24 TD (15:57)
[2024-10-10] MEDS ORDERED: ALBU8.5H INH (15:57)
[2024-10-10] MEDS ORDERED: BACI1CAP PO (15:57)
[2024-10-10] MEDS ORDERED: PRED20TA PO (15:57)
[2024-10-11 05:01] VITALS: BP 138/66; TEMP 97.5; O2SAT 95
[2024-10-11 06:14] LABS: BLOOD UREA NITROGEN 14 MG/DL (9-23); CALCIUM LEVEL 9.6 MG/DL (8.3-10.6); CARBON DIOXIDE LEVEL 37 MMOL/L (20-31); CHLORIDE LEVEL 95 MMOL/L (98-107); CREATININE FOR GFR 0.29 MG/DL (0.55-1.30); GLOMERULAR FILTRATION RATE > 90.0 (>45); GLUCOSE, FASTING 89 MG/DL (74-106); MAGNESIUM LEVEL 1.4 MG/DL (1.8-2.4); POTASSIUM SERUM 3.8 MMOL/L (3.5-5.1); SODIUM LEVEL 136 MMOL/L (136-145)
[2024-10-11 09:15] VITALS: BP 136/68
[2024-10-11] MEDS: MAG SULF 1GM/100ML (MAG RUN) 1 GM in IV 1 EA IV ONE (10:48)
[2024-10-11] MEDS: MAGNESIUM OXIDE 400MG TAB (MAG-OX) PO ONE (10:48)
[2024-10-11 12:05] VITALS: BP 144/77; TEMP 97.9; O2SAT 90
== END 2024-10-11 12:46 | disposition home health service (06) | DRG 189 ==
LOC: M ICU 14:39 → M MSPAV 10-10 13:08
PROVIDERS: ADMIT Internal Medicine Pulmonary Disease; ATTEND General Practice
PROC: B246ZZZ Ultrasonography of Right and Left Heart (ICD-10-PCS; principal; 2024-10-06)
DX: J96.22 Acute and chronic respiratory failure with hypercapnia (principal); G93.41 Metabolic encephalopathy; J15.69 Pneumonia due to other Gram-negative bacteria; I50.31 Acute diastolic (congestive) heart failure; E46 Unspecified protein-calorie malnutrition; J44.1 Chronic obstructive pulmonary disease with (acute) exacerbation; F10.239 Alcohol dependence with withdrawal, unspecified; E87.3 Alkalosis; G72.81 Critical illness myopathy; I16.9 Hypertensive crisis, unspecified; J81.1 Chronic pulmonary edema; J44.0 Chronic obstructive pulmonary disease with (acute) lower respiratory infection; Z68.1 Body mass index [BMI] 19.9 or less, adult; I11.0 Hypertensive heart disease with heart failure; I27.20 Pulmonary hypertension, unspecified; E78.5 Hyperlipidemia, unspecified; F17.200 Nicotine dependence, unspecified, uncomplicated; M06.9 Rheumatoid arthritis, unspecified; J96.21 Acute and chronic respiratory failure with hypoxia; Z79.82 Long term (current) use of aspirin; Z79.02 Long term (current) use of antithrombotics/antiplatelets; Z79.899 Other long term (current) drug therapy; Z91.048 Other nonmedicinal substance allergy status